=== PATIENT | male | born 1940 | race Caucasian/White ===

== ENCOUNTER 2018-09-09 13:34 | Observation (INO) | payer OTHER ==
[~2018-09-09 13:34] MED LIST: ASCO500C18 PO; ASPI-555 PO; CALC600T12 PO; HYDR25TA PO; LOSA100T58 PO; MAGN250T10 PO; MULT-1289 PO; NITR0.4T50 SL; OM3/1CAP3 PO; VITA1CAP20 PO
[2018-09-09] MEDS ORDERED: ONDANSETRON HCL 4 MG/2 ML VIAL ONE (13:49)
[2018-09-09] MEDS ORDERED: ASPIRIN 325 MG TABLET ONE (13:49)
[2018-09-09] MEDS ORDERED: MORPHINE SULFATE 2 MG/ML 1ML SYG ONE (13:50)
[2018-09-09] MEDS ORDERED: NITROGLYCERIN 1GM/1 INCH PACKET TD ONE ×2 (13:50→22:04)
[2018-09-09 13:54] LABS: BASOPHILS % (AUTO) 0.8 % (0.0-5.0); EOSINOPHILS % (AUTO) 3.5 % (0.0-8.0); HEMATOCRIT 41.5 % (42-54); LYMPHOCYTES % (AUTO) 41.5 % (21.0-51.0); MEAN CORPUSCULAR HEMOGLOBIN 31.8 pg (27.0-33.0); MEAN CORPUSCULAR HGB CONC 34.7 g/dL (32.0-36.0); MEAN CORPUSCULAR VOLUME 91.7 fL (79-99); MONOCYTES % (AUTO) 8.8 % (3.0-13.0); NEUTROPHILS % (AUTO) 45.4 % (40.0-77.0); PLATELET COUNT (AUTO) 231 K/uL (130-400); RED BLOOD CELL COUNT(AUTO) 4.53 MIL/uL (4.50-6.20); RED CELL DISTRIBUTION WIDTH 12.5 % (11.0-15.5); WHITE BLOOD COUNT (AUTO) 7.8 K/uL (4.8-10.8)
[2018-09-09 13:57] LABS: CREATININE 1.2 mg/dL (0.5-1.5); POTASSIUM 3.9 mmol/L (3.5-5.1)
[2018-09-09 14:03] LABS: ALBUMIN 3.7 g/dL (3.5-5.0); BILIRUBIN,TOTAL 0.5 mg/dL (0.2-1.0); TOTAL PROTEIN, SERUM 8.1 g/dL (6.0-8.3)
[2018-09-09 14:10] LABS: INR 0.99 (0.85-1.15); PARTIAL THROMBOPLASTIN TIME 28.2 SEC (26.3-35.5); PROTHROMBIN TIME 10.4 SEC (9.6-11.6)
[2018-09-09] MEDS ORDERED: ENOXAPARIN SODIUM 100 MG/1 ML SQ ONE (14:38)
[2018-09-09] MEDS ORDERED: MORPHINE SULFATE 2 MG/ML 1ML SYG IV PRN (14:45)
[2018-09-09] MEDS ORDERED: HYDRALAZINE HCL 20 MG/ML VIAL IV PRN (14:45)
[2018-09-09] MEDS ORDERED: ONDANSETRON HCL 4 MG/2 ML VIAL IV PRN (14:45)
[2018-09-09] MEDS ORDERED: ACETAMINOPHEN 325 MG TAB PO PRN ×2 (14:45)
[2018-09-09 15:46] LABS: TROPONIN I 0.29 ng/mL (0.00-0.06)
[2018-09-09] MEDS: METOPROLOL TARTRATE 25 MG TAB PO SCH (21:00)
[2018-09-09] MEDS ORDERED: METOPROLOL TARTRATE 25 MG TAB ONE (22:04)
[2018-09-09] MEDS ORDERED: FAMOTIDINE/PF 20 MG/2 ML VIAL IV ONE (22:05)
--- NOTE | 2018-09-09 22:25 | NUR ---
Patient transferred from ED. Denies chest pain or sob at this time. Patient will be NPO at midnight for Heart Cath in am. Consent signed and in chart. Will continue to monitor for chest pain.
[2018-09-09 22:30] VITALS: BP 128/69
[2018-09-09] MEDS: NITROGLYCERIN 1GM/1 INCH PACKET TD SCH (22:45)
[2018-09-09 23:58] LABS: TROPONIN I 0.27 ng/mL (0.00-0.06)
[2018-09-10] VITALS (11 sets, daily range): BP systolic 128–148; BP diastolic 67–81
[2018-09-10 07:21] LABS: TROPONIN I 0.29 ng/mL (0.00-0.06)
[2018-09-10] MEDS ORDERED: BIVALIRUDIN 250 MG/VIAL IV ONE (07:41)
[2018-09-10] MEDS ORDERED: NITROGLYCERIN 5 MG/ML 10 ML VIAL IV ONE (07:41)
[2018-09-10] MEDS ORDERED: LIDOCAINE HCL 2% 20ML ONE (07:41)
[2018-09-10] MEDS ORDERED: IOHEXOL 350 MG/ML 100ML INFUS..BTL IV ONE (07:41)
[2018-09-10] MEDS ORDERED: IOHEXOL-350 50ML VIAL IV ONE (07:41)
[2018-09-10] MEDS ORDERED: MIDAZOLAM HCL 1 MG/ML 2ML VIAL ONE (08:05)
[2018-09-10] MEDS ORDERED: [UNRECOGNIZED DRUG - OTHER] PO SCH (09:00)
[2018-09-10] MEDS ORDERED: D3 PO SCH (09:00)
[2018-09-10] MEDS ORDERED: DHA PO SCH (09:00)
[2018-09-10] MEDS ORDERED: FAMOTIDINE/PF 20 MG/2 ML VIAL IV SCH (09:00)
[2018-09-10] MEDS ORDERED: NITROGLYCERIN 0.4 MG SL TAB SL SCH (09:00)
[2018-09-10] MEDS ORDERED: ASCORBIC ACID 500 MG TAB PO SCH (09:00)
[2018-09-10] MEDS ORDERED: COD LIVER OIL PO SCH (09:00)
[2018-09-10] MEDS ORDERED: ENOXAPARIN SODIUM 40 MG/0.4 ML SYRINGE SQ SCH (09:00)
[2018-09-10] MEDS ORDERED: VITAMIN B COMPLEX 1 CAPSULE PO SCH (09:00)
[2018-09-10] MEDS ORDERED: CALCIUM 600 + VITAMIN D 400 TABLET PO SCH (09:00)
[2018-09-10] MEDS ORDERED: EPA PO SCH (09:00)
[2018-09-10] MEDS ORDERED: ASPIRIN 325 MG TABLET PO SCH (09:00)
[2018-09-10] MEDS ORDERED: LOSARTAN 100 MG TABLET PO SCH (09:00)
[2018-09-10] MEDS ORDERED: ATOR10TA69 PO (09:03)
[2018-09-10] MEDS ORDERED: RANO500T2 PO (09:03)
[2018-09-10] MEDS ORDERED: SODIUM CHLORIDE 0.9% 1000ML 1,000 ML IV SCH (09:03)
--- NOTE | 2018-09-10 09:25 | NUR ---
RETURNED TO ROOM 230 VIA BED ACCOMPANIED BY Arnulfo MARSHALL RN. PT. AAOX3, RESP.'S EVEN AND UNLABORED. DENIES ANY C/O SOB, DENIES ANY CURRENT PAIN. INSTRUCTED PT. ON STRICT BR PER MD ORDERS, VERBALIZED UNDERSTANDING. RIGHT GROIN WITH LIGHT DRSG IN PLACE, DRSG D/I; AREA SOFT, NO ECCHYMOSIS OR HEMATOMA NOTED. FEET WARM, PP'S (+) BILATERALLY, DENIES ANY C/O NUMBNESS OR TINGLING. BED PLACED IN REVERSE [place] POSITION FOR COMFORT. SIDE RAILS UP. CALL LIGHT WITHIN REACH, VERBALIZED ABILITY TO USE.
--- NOTE | 2018-09-10 09:40 | NUR ---
CONT.'S ON BR. RIGHT GROIN UNCHANGED. DENIES ANY C/O. CALL LIGHT WITHIN REACH.
--- NOTE | 2018-09-10 10:00 | NUR ---
LATE ENTRY DR. DR. Erik DAVID IN ROOM SPEAKING WITH PT. AND INFORMING OF [facility] FINDINGS AND PLAN FOR DISCHARGE AFTER BR AND HYDRATION COMPLETED, PT. VERBALIZED UNDERSTANDING. QUESTIONS ANSWERED BY DR. Erik DAVID.
--- NOTE | 2018-09-10 10:10 | NUR ---
RESTING IN BED IN REVERSE [place] POSITION. EATING SANDWICH TRAY PROVIDED. DENIES ANY C/O. CALL LIGHT WITHIN REACH.
[2018-09-10] MEDS: METOPROLOL TARTRATE 25 MG TAB PO SCH (10:23)
--- NOTE | 2018-09-10 11:30 | NUR ---
RESTING IN BED. RIGHT GROIN UNCHANGED. CALL LIGHT WITHIN REACH.
--- NOTE | 2018-09-10 13:55 | NUR ---
BR COMPLETED. RIGHT GROIN SOFT, NO ECCHYMOSIS OR HEMATOMA NOTED; DRSG D/I. PP.'S STRONG BILATERALLY. ALLOWED OOB TO CHAIR. CALL LIGHT WITHIN REACH.
[2018-09-10] MEDS: NITROGLYCERIN 1GM/1 INCH PACKET TD SCH (14:45)
--- NOTE | 2018-09-10 16:30 | NUR ---
HL REMOVED, CATHETER INTACT. DISCHARGE INSTRUCTIONS GIVEN AND DISCHARGE PAPERWORK PROVIDED, VERBALIZED UNDERSTANDING. INFORMED PT. RE:RESTRICTIONS AND NOT RECOMMENDED TO DRIVE POST LHC, STATES," I'VE ALWAYS DONE IT AFTER THE HEART CATHS AND I'M FINE."
--- NOTE | 2018-09-10 16:45 | NUR ---
DISCHARGED HOME VIA W/C WITH BELONGINGS ACCOMPANIED BY FLORINA TOLBERT.
[2018-09-10] MEDS ORDERED: RANOLAZINE 500 MG TAB.SR.12H PO SCH (21:00)
[2018-09-10] MEDS ORDERED: ATORVASTATIN CALCIUM 20 MG TABLET PO SCH (21:00)
[2018-09-10] MEDS ORDERED: HYDROCHLOROTHIAZIDE 25 MG TABLET PO SCH (21:00)
[2018-09-11] MEDS ORDERED: ASPIRIN 81 MG EC TAB PO SCH (09:00)
[2018-09-11] MEDS ORDERED: MULTIVITAMIN WITH MINERALS TABLET PO SCH (09:00)
[2018-09-17] MEDS ORDERED: MAGNESIUM OXIDE 250 MG PO SCH (09:00)
== END 2018-09-10 16:50 | disposition home or self-care (01) ==
LOC: EDH 13:34 → EDHIP 14:43 → INTOOBSV 14:43 → 2AH 22:32
PROVIDERS: ADMIT Internal Medicine; ATTEND Internal Medicine
DX: I25.118 Atherosclerotic heart disease of native coronary artery with other forms of angina pectoris (principal); I10 Essential (primary) hypertension; E78.5 Hyperlipidemia, unspecified; T82.857A Stenosis of other cardiac prosthetic devices, implants and grafts, initial encounter; Y83.2 Surgical operation with anastomosis, bypass or graft as the cause of abnormal reaction of the patient, or of later complication, without mention of misadventure at the time of the procedure; Z95.5 Presence of coronary angioplasty implant and graft; Z88.8 Allergy status to other drugs, medicaments and biological substances; Z95.1 Presence of aortocoronary bypass graft; Z90.49 Acquired absence of other specified parts of digestive tract; Z87.891 Personal history of nicotine dependence; Z79.899 Other long term (current) drug therapy
CPT/HCPCS: 36415 ×3; 71045; 80053; 80061; 81003; 82550 ×4; 83036; 83874 ×3; 84484 ×4; 85025 ×2; 85610 ×2; 85730 ×2; 93005 ×5; 93459; 96374; 99284; C1760; C1894; G0378 ×26; J1644; J1650; J2250; J2405; J3490 ×4; J7030; Q9965 ×2; Q9967 ×2; 80048; 99156; 99157; J0583

== ENCOUNTER 2019-03-23 10:13 | Emergency (ER) | payer OTHER ==
[~2019-03-23 10:13] MED LIST changes: +ATOR10TA69 PO; +RANO500T2 PO
[2019-03-23 11:17] LABS: EOSINOPHILS % (AUTO) 2.6 % (0.0-8.0); HEMATOCRIT 42.2 % (42-54); LYMPHOCYTES % (AUTO) 33.9 % (21.0-51.0); MEAN CORPUSCULAR HEMOGLOBIN 31.9 pg (27.0-33.0); MEAN CORPUSCULAR HGB CONC 34.4 g/dL (32.0-36.0); MEAN CORPUSCULAR VOLUME 92.9 fL (79-99); MONOCYTES % (AUTO) 8.4 % (3.0-13.0); NEUTROPHILS % (AUTO) 54.1 % (40.0-77.0); PLATELET COUNT (AUTO) 232 K/uL (130-400); RED BLOOD CELL COUNT(AUTO) 4.54 MIL/uL (4.50-6.20); RED CELL DISTRIBUTION WIDTH 12.8 % (11.0-15.5)
[2019-03-23] MEDS ORDERED: DiphenhydrAMINE HCL 50 MG/ML VIAL ONE (11:29)
[2019-03-23 11:31] LABS: CREATININE 1.2 mg/dL (0.5-1.5); POTASSIUM 4.2 mmol/L (3.5-5.1)
[2019-03-23 11:44] LABS: ALBUMIN 3.7 g/dL (3.5-5.0); BILIRUBIN,TOTAL 0.6 mg/dL (0.2-1.0); THYROID STIMULATING HORMONE 3.58 uIU/mL (0.36-3.74); TOTAL PROTEIN, SERUM 8.1 g/dL (6.0-8.3)
[2019-03-23] MEDS ORDERED: FAMOTIDINE/PF 20 MG/2 ML VIAL IV ONE (12:42)
== END 2019-03-23 13:06 | disposition home or self-care (01) ==
LOC: EDH 10:13
DX: L50.9 Urticaria, unspecified (principal); I25.10 Atherosclerotic heart disease of native coronary artery without angina pectoris; I10 Essential (primary) hypertension; Z87.891 Personal history of nicotine dependence; Z88.8 Allergy status to other drugs, medicaments and biological substances; Z79.899 Other long term (current) drug therapy
CPT/HCPCS: 36415; 80053; 84443; 85025; 86038; 86431; 96374; 96375; 99284; J1200; J3490

== ENCOUNTER 2022-10-29 02:21 | Emergency (ER) | payer OTHER ==
[~2022-10-29] VITALS: Ht 180.3 cm; Wt 90.7 kg
[~2022-10-29 02:21] MED LIST changes: -ASCO500C18 PO; +ASPI-1197 PO; -ASPI-555 PO; -ATOR10TA69 PO; +ATOR40TA71 PO; -CALC600T12 PO; +GUAI100S13 PO; -HYDR25TA PO; -MAGN250T10 PO; +METO-391 PO; -MULT-1289 PO; -NITR0.4T50 SL; -OM3/1CAP3 PO; -RANO500T2 PO; +SENN-180 PO; -VITA1CAP20 PO
[2022-10-29] MEDS ORDERED: TETRACAINE HCL 0.5% 4 ML OPHTH SOLN OP SCH (03:30)
[2022-10-29 04:05] VITALS: BP 132/63
[2022-10-29] MEDS ORDERED: AMOX/CLAV 875/125MG TAB PO STA (04:10)
[2022-10-29] MEDS ORDERED: CIPOTIC OT (04:14)
[2022-10-29] MEDS ORDERED: AMOX1TAB16 PO (04:14)
== END 2022-10-29 04:43 | disposition home or self-care (01) ==
LOC: EDH 02:21
DX: H60.91 Unspecified otitis externa, right ear (principal); H66.90 Otitis media, unspecified, unspecified ear; I10 Essential (primary) hypertension; Z79.899 Other long term (current) drug therapy; Z79.82 Long term (current) use of aspirin; Z90.49 Acquired absence of other specified parts of digestive tract; Z98.890 Other specified postprocedural states; Z88.8 Allergy status to other drugs, medicaments and biological substances

== ENCOUNTER 2023-03-02 06:00 | Inpatient (IN) | payer OTHER ==
[~2023-03-02] VITALS: Ht 180.3 cm; Wt 88.9 kg
[~2023-03-02 06:00] MED LIST changes: +AMOX1TAB16 PO; +CIPOTIC OT; -LOSA100T58 PO; +LOSA100T59 PO
[2023-03-02 06:26] LABS: BASOPHILS # (AUTO) 0.05 K/uL (0.00-0.20); BASOPHILS % (AUTO) 0.9 % (0.0-5.0); EOSINOPHILS # (AUTO) 0.15 K/uL (0.00-0.70); EOSINOPHILS % (AUTO) 2.6 % (0.0-8.0); HEMATOCRIT 40.3 % (42-54); IMMATURE GRANULOCYTE ABSOLUTE 0.01 K/uL (0-1); LYMPHOCYTES # (AUTO) 2.7 K/uL (1.0-4.8); LYMPHOCYTES % (AUTO) 45.5 % (21.0-51.0); MEAN CORPUSCULAR HEMOGLOBIN 31.4 pg (27.0-33.0); MEAN CORPUSCULAR HGB CONC 34.5 g/dL (32.0-36.0); MONOCYTES # (AUTO) 0.6 K/uL (0.1-1.0); MONOCYTES % (AUTO) 10.4 % (3.0-13.0); NEUTROPHILS # (AUTO) 2.4 K/uL (1.8-7.7); NEUTROPHILS % (AUTO) 40.4 % (40.0-77.0); PLATELET COUNT (AUTO) 238 K/uL (130-400); RED BLOOD CELL COUNT(AUTO) 4.43 MIL/uL (4.50-6.20); RED CELL DISTRIBUTION WIDTH 12.2 % (11.0-15.5); WHITE BLOOD COUNT (AUTO) 5.9 K/uL (4.8-10.8)
[2023-03-02 06:37] LABS: INR 0.97 (0.85-1.15); PROTHROMBIN TIME 11.3 SEC (9.6-11.6)
[2023-03-02 06:38] LABS: PARTIAL THROMBOPLASTIN TIME 27.6 SEC (26.3-35.5)
[2023-03-02 06:44] LABS: ALBUMIN 3.6 g/dL (3.5-5.0); BILIRUBIN,TOTAL 0.6 mg/dL (0.2-1.0); CREATININE 1.1 mg/dL (0.5-1.5); POTASSIUM 3.7 mmol/L (3.5-5.1); TOTAL PROTEIN, SERUM 7.8 g/dL (6.0-8.3)
[2023-03-02] MEDS ORDERED: ATENOLOL 50 MG TABLET ONE (11:12)
[2023-03-02 11:25] LABS: APPEARANCE,URINE CLEAR (CLEAR); BILIRUBIN,URINE NEGATIVE (NEGATIVE); GLUCOSE, URINE (UA) NEGATIVE (NEGATIVE); KETONES,URINE NEGATIVE (NEGATIVE); LEUKOCYTE ESTERASE ,URINE NEGATIVE Leu/uL (NEGATIVE); NITRATE,URINE NEGATIVE (NEGATIVE); OCCULT BLOOD,URINE NEGATIVE (NEGATIVE); PH,URINE 7.5 (5.0-8.0); PROTEIN,URINE NEGATIVE (NEGATIVE); UROBILINOGEN,URINE 0.2 mg/dL (0.2-1.0)
[2023-03-02 11:27] LABS: ADD UA MICROSCOPIC NO; COLOR,URINE LIGHT-YELLOW (YELLOW)
[2023-03-02 11:31] LABS: AMPHET/METH SCREEN,URINE NEGATIVE (NEGATIVE); BARBITURATE SCREEN, URINE NEGATIVE (NEGATIVE); BENZODIAZEPINES SCREEN,URINE NEGATIVE (NEGATIVE); CANNABINOID SCREEN,URINE NEGATIVE (NEGATIVE); COCAINE SCREEN,URINE NEGATIVE (NEGATIVE); OPIATE SCREEN,URINE NEGATIVE (NEGATIVE); PHENCYCLIDINE SCREEN,URINE NEGATIVE (NEGATIVE)
[2023-03-02] MEDS ORDERED: ASPIRIN 81MG CHEW TAB ONE (11:48)
[2023-03-02] MEDS: ASPIRIN 81 MG EC TAB PO SCH (11:50)
[2023-03-02] MEDS: LOSARTAN 50 MG TABLET PO SCH ×2 (11:50→15:28)
[2023-03-02] MEDS: ATENOLOL 25 MG TABLET PO SCH ×2 (11:50→15:29)
[2023-03-02 11:53] LABS: HEMOGLOBIN A1C 5.7 % (4.0-6.0)
[2023-03-02] MEDS ORDERED: HYDR25TA PO (11:54)
[2023-03-02] MEDS ORDERED: ATEN50TA PO (11:54)
[2023-03-02 13:42] VITALS: BP 184/86; PULSE 69; RESP 16
[2023-03-02 14:03] VITALS: O2SAT 100
[2023-03-02] MEDS: ATORVASTATIN 40 MG TABLET PO SCH (15:36)
[2023-03-02 15:58] VITALS: BP 185/72; PULSE 55; RESP 20
[2023-03-02 19:40] VITALS: O2SAT 98
[2023-03-02 19:48] VITALS: BP 171/92; PULSE 55; RESP 18
[2023-03-02] MEDS: CARVEDILOL 12.5 MG TABLET PO SCH (20:07)
[2023-03-02] MEDS: DOCUSATE PO SCH (20:17)
[2023-03-02] MEDS: SENNA PO SCH (20:17)
[2023-03-02 23:21] VITALS: BP 150/90; PULSE 52; RESP 18
[2023-03-03] VITALS (11 sets, daily range): BP systolic 107–183; BP diastolic 72–92; PULSE 57–82; RESP 16–18; O2SAT 98
[2023-03-03 04:01] LABS: BASOPHILS # (AUTO) 0.06 K/uL (0.00-0.20); EOSINOPHILS # (AUTO) 0.16 K/uL (0.00-0.70); EOSINOPHILS % (AUTO) 2.7 % (0.0-8.0); HEMATOCRIT 39.9 % (42-54); IMMATURE GRANULOCYTE ABSOLUTE 0.01 K/uL (0-1); LYMPHOCYTES # (AUTO) 2.2 K/uL (1.0-4.8); LYMPHOCYTES % (AUTO) 37.5 % (21.0-51.0); MEAN CORPUSCULAR HEMOGLOBIN 30.9 pg (27.0-33.0); MEAN CORPUSCULAR HGB CONC 33.8 g/dL (32.0-36.0); MEAN CORPUSCULAR VOLUME 91.3 fL (79-99); MONOCYTES # (AUTO) 0.6 K/uL (0.1-1.0); MONOCYTES % (AUTO) 10.4 % (3.0-13.0); NEUTROPHILS # (AUTO) 2.8 K/uL (1.8-7.7); NEUTROPHILS % (AUTO) 48.2 % (40.0-77.0); PLATELET COUNT (AUTO) 222 K/uL (130-400); RED BLOOD CELL COUNT(AUTO) 4.37 MIL/uL (4.50-6.20); RED CELL DISTRIBUTION WIDTH 12.2 % (11.0-15.5); WHITE BLOOD COUNT (AUTO) 5.9 K/uL (4.8-10.8)
[2023-03-03 04:25] LABS: ALBUMIN 3.1 g/dL (3.5-5.0); BILIRUBIN,TOTAL 0.5 mg/dL (0.2-1.0); CREATININE 1.2 mg/dL (0.5-1.5); POTASSIUM 3.9 mmol/L (3.5-5.1)
[2023-03-03] MEDS: CARVEDILOL 12.5 MG TABLET PO SCH ×2 (08:28→20:18)
[2023-03-03] MEDS ORDERED: CARV12.580 PO (09:37)
[2023-03-03] MEDS ORDERED: LOSA-418 PO (09:37)
[2023-03-03] MEDS ORDERED: LOSA50TA64 PO (09:50)
[2023-03-03] MEDS ORDERED: CLONIDINE HCL 0.1 MG TABLET PO SCH (10:30)
[2023-03-03] MEDS ORDERED: LOSARTAN 50 MG TABLET PO SCH (11:00)
[2023-03-03] MEDS: LOSARTAN 50 MG TABLET PO SCH (20:18)
[2023-03-03] MEDS: DOCUSATE PO SCH (20:22)
[2023-03-03] MEDS: SENNA PO SCH (20:22)
[2023-03-03] MEDS ORDERED: CLONIDINE HCL 0.1 MG TABLET PO PRN (20:30)
[2023-03-04] VITALS (11 sets, daily range): BP systolic 137–199; BP diastolic 63–90; PULSE 58–74; RESP 18–20; O2SAT 97–99
[2023-03-04] MEDS: ATORVASTATIN 40 MG TABLET PO SCH (09:00)
[2023-03-04] MEDS: LOSARTAN 50 MG TABLET PO SCH ×2 (09:00→20:08)
[2023-03-04 10:27] LABS: ALBUMIN 3.1 g/dL (3.5-5.0); BILIRUBIN,TOTAL 0.5 mg/dL (0.2-1.0); CREATININE 1.2 mg/dL (0.5-1.5); MAGNESIUM 2.2 mg/dL (1.80-2.40); POTASSIUM 3.7 mmol/L (3.5-5.1); TOTAL PROTEIN, SERUM 6.7 g/dL (6.0-8.3)
[2023-03-04] MEDS: CARVEDILOL 12.5 MG TABLET PO SCH ×2 (11:03→20:09)
[2023-03-04] MEDS: ASPIRIN 81 MG EC TAB PO SCH (11:04)
[2023-03-04 16:43] LABS: HEMATOCRIT 36.7 % (42-54); MEAN CORPUSCULAR HEMOGLOBIN 31.9 pg (27.0-33.0); MEAN CORPUSCULAR HGB CONC 35.1 g/dL (32.0-36.0); MEAN CORPUSCULAR VOLUME 90.8 fL (79-99); RED BLOOD CELL COUNT(AUTO) 4.04 MIL/uL (4.50-6.20); RED CELL DISTRIBUTION WIDTH 12.2 % (11.0-15.5); WHITE BLOOD COUNT (AUTO) 6.4 K/uL (4.8-10.8)
[2023-03-04] MEDS: SENNA PO SCH (20:15)
[2023-03-04] MEDS: DOCUSATE PO SCH (20:15)
[2023-03-05] VITALS (8 sets, daily range): BP systolic 124–158; BP diastolic 66–89; PULSE 61–71; RESP 18–22; O2SAT 97
[2023-03-05 04:21] LABS: BILIRUBIN,TOTAL 0.5 mg/dL (0.2-1.0); CREATININE 1.3 mg/dL (0.5-1.5); POTASSIUM 4.1 mmol/L (3.5-5.1); TOTAL PROTEIN, SERUM 6.7 g/dL (6.0-8.3)
[2023-03-05] MEDS: LOSARTAN 50 MG TABLET PO SCH (08:30)
[2023-03-05] MEDS: CARVEDILOL 12.5 MG TABLET PO SCH (08:30)
[2023-03-05] MEDS: ATORVASTATIN 40 MG TABLET PO SCH (08:30)
[2023-03-05] MEDS: ASPIRIN 81 MG EC TAB PO SCH (08:31)
[2023-03-05] MEDS ORDERED: AMLO-258 PO (09:12)
[2023-03-05] MEDS ORDERED: SPIR25TA6 PO (09:12)
[2023-03-05] MEDS ORDERED: VALS80TA30 PO (09:12)
[2023-03-05] MEDS ORDERED: AMLODIPINE 5 MG TAB PO ONE (09:30)
== END 2023-03-05 12:40 | disposition home or self-care (01) | DRG 305 ==
LOC: EDH 06:00 → EDHIP 11:03 → 2AH 13:15
PROVIDERS: ADMIT Internal Medicine; ATTEND Internal Medicine
DX: I16.0 Hypertensive urgency (principal); E87.1 Hypo-osmolality and hyponatremia; I24.8 Other forms of acute ischemic heart disease; T50.2X5A Adverse effect of carbonic-anhydrase inhibitors, benzothiadiazides and other diuretics, initial encounter; I25.10 Atherosclerotic heart disease of native coronary artery without angina pectoris; E78.00 Pure hypercholesterolemia, unspecified; E03.9 Hypothyroidism, unspecified; I10 Essential (primary) hypertension; Z79.899 Other long term (current) drug therapy; Z87.891 Personal history of nicotine dependence; Z95.1 Presence of aortocoronary bypass graft; Z95.5 Presence of coronary angioplasty implant and graft
CPT/HCPCS: 36415; 70450; 71045; 80053; 80305; 81003; 82550; 83036; 83735; 83874; 84436; 84443; 84484; 85025; 85027; 85610; 85730; 93005; 93306; 93356; G0378

== ENCOUNTER 2023-03-25 08:50 | Emergency (ER) | payer OTHER ==
[~2023-03-25 08:50] MED LIST changes: +AMLO-258 PO; -LOSA100T59 PO; -METO-391 PO; +SPIR25TA6 PO; +VALS80TA30 PO
[2023-03-25 09:16] LABS: HEMATOCRIT 39.6 % (42-54); MEAN CORPUSCULAR HEMOGLOBIN 31.6 pg (27.0-33.0); MEAN CORPUSCULAR HGB CONC 34.3 g/dL (32.0-36.0); MEAN CORPUSCULAR VOLUME 91.9 fL (79-99); RED BLOOD CELL COUNT(AUTO) 4.31 MIL/uL (4.50-6.20); RED CELL DISTRIBUTION WIDTH 11.8 % (11.0-15.5); WHITE BLOOD COUNT (AUTO) 6.4 K/uL (4.8-10.8)
[2023-03-25 09:26] LABS: CREATININE 1.1 mg/dL (0.5-1.5); POTASSIUM 4.2 mmol/L (3.5-5.1)
[2023-03-25 15:18] VITALS: BP 160/77; PULSE 69; RESP 16; O2SAT 98
[2023-03-25] MEDS ORDERED: MELO-106 PO (15:39)
[2023-03-25] MEDS ORDERED: GABA100C PO (15:39)
== END 2023-03-25 15:46 | disposition home or self-care (01) ==
LOC: EDH 08:50
DX: M47.22 Other spondylosis with radiculopathy, cervical region (principal); I10 Essential (primary) hypertension; E78.00 Pure hypercholesterolemia, unspecified; Z88.8 Allergy status to other drugs, medicaments and biological substances; Z79.899 Other long term (current) drug therapy; Z90.49 Acquired absence of other specified parts of digestive tract
CPT/HCPCS: 36415; 70450; 72125; 80048; 85027

== ENCOUNTER 2023-04-29 08:02 | Observation (INO) | payer OTHER ==
[~2023-04-29] VITALS: Ht 182.9 cm; Wt 90.4 kg
[~2023-04-29 08:02] MED LIST changes: +GABA100C PO; +MELO-106 PO
[2023-04-29 08:43] LABS: HEMATOCRIT 38.5 % (42-54); MEAN CORPUSCULAR HEMOGLOBIN 32.1 pg (27.0-33.0); MEAN CORPUSCULAR HGB CONC 34.8 g/dL (32.0-36.0); MEAN CORPUSCULAR VOLUME 92.1 fL (79-99); PLATELET COUNT (AUTO) 228 K/uL (130-400); RED BLOOD CELL COUNT(AUTO) 4.18 MIL/uL (4.50-6.20); RED CELL DISTRIBUTION WIDTH 12.5 % (11.0-15.5); WHITE BLOOD COUNT (AUTO) 5.5 K/uL (4.8-10.8)
[2023-04-29 08:53] LABS: CREATININE 1.2 mg/dL (0.5-1.5); POTASSIUM 3.9 mmol/L (3.5-5.1)
[2023-04-29 09:08] LABS: ALBUMIN 3.4 g/dL (3.5-5.0); BILIRUBIN,TOTAL 0.4 mg/dL (0.2-1.0); TOTAL PROTEIN, SERUM 7.4 g/dL (6.0-8.3)
[2023-04-29 09:27] LABS: EOSINOPHILS % (MANUAL) 1 % (1-6); LYMPHOCYTES % (MANUAL) 43 % (22-44); MONOCYTES % (MANUAL) 6 % (2-9); SEGMENTED NEUTROPHILS % 50 % (40-70); TOTAL CELLS COUNTED 100
[2023-04-29 09:28] LABS: MAN.DIFF COMMENT-IMPRESSION MANUAL DIFFERENTIAL; PLATELET MORPHOLOGY COMMENT ADEQUATE; WBC MORPHOLOGY SLIDE REVIEWED
[2023-04-29] MEDS ORDERED: ATEN50TA PO (12:18)
[2023-04-29] MEDS ORDERED: ATOR10TA69 PO (12:18)
[2023-04-29] MEDS: 0.9%NACL 1000ML 1,000 ML IV SCH (13:13)
[2023-04-29] MEDS: LOSARTAN 25 MG TABLET PO SCH (13:15)
[2023-04-29] MEDS ORDERED: ACETAMINOPHEN 500 MG TABLET PO PRN (13:30)
[2023-04-29] MEDS ORDERED: ONDANSETRON 4MG INJ IVP PRN (13:30)
[2023-04-29] MEDS: ATENOLOL 50 MG TABLET PO SCH (17:53)
[2023-04-29 22:00] VITALS: BP 166/96; PULSE 57; RESP 18; O2SAT 98
[2023-04-30] VITALS (13 sets, daily range): BP systolic 114–167; BP diastolic 53–98; PULSE 51–71; RESP 18–20; O2SAT 97
[2023-04-30] MEDS ORDERED: HYDRALAZINE 20MG/ML VIAL IV ONE
[2023-04-30] MEDS: ATENOLOL 50 MG TABLET PO SCH (07:52)
[2023-04-30] MEDS: ASPIRIN 81 MG EC TAB PO SCH (07:52)
[2023-04-30] MEDS: LOSARTAN 25 MG TABLET PO SCH (12:21)
[2023-04-30] MEDS ORDERED: SPIRONOLACTONE 25 MG TAB PO ONE (15:30)
[2023-05-01 03:44] LABS: BASOPHILS # (AUTO) 0.05 K/uL (0.00-0.20); BASOPHILS % (AUTO) 0.9 % (0.0-5.0); EOSINOPHILS # (AUTO) 0.16 K/uL (0.00-0.70); EOSINOPHILS % (AUTO) 2.7 % (0.0-8.0); HEMATOCRIT 37.4 % (42-54); IMMATURE GRANULOCYTE ABSOLUTE 0.02 K/uL (0-1); LYMPHOCYTES # (AUTO) 2.2 K/uL (1.0-4.8); LYMPHOCYTES % (AUTO) 37.3 % (21.0-51.0); MEAN CORPUSCULAR HEMOGLOBIN 31.7 pg (27.0-33.0); MEAN CORPUSCULAR HGB CONC 34.2 g/dL (32.0-36.0); MEAN CORPUSCULAR VOLUME 92.6 fL (79-99); MONOCYTES # (AUTO) 0.6 K/uL (0.1-1.0); MONOCYTES % (AUTO) 9.9 % (3.0-13.0); NEUTROPHILS # (AUTO) 2.9 K/uL (1.8-7.7); NEUTROPHILS % (AUTO) 48.9 % (40.0-77.0); PLATELET COUNT (AUTO) 211 K/uL (130-400); RED BLOOD CELL COUNT(AUTO) 4.04 MIL/uL (4.50-6.20); RED CELL DISTRIBUTION WIDTH 12.4 % (11.0-15.5); WHITE BLOOD COUNT (AUTO) 5.9 K/uL (4.8-10.8)
[2023-05-01 03:57] LABS: CREATININE 1.3 mg/dL (0.5-1.5); PHOSPHORUS 3.7 mg/dL (2.5-4.9); POTASSIUM 4.3 mmol/L (3.5-5.1)
[2023-05-01 04:30] VITALS: BP 148/76; PULSE 80; RESP 18
[2023-05-01] MEDS: 0.9%NACL 1000ML 1,000 ML IV SCH (05:00)
[2023-05-01 07:00] VITALS: BP 158/77; PULSE 66; RESP 18
[2023-05-01] MEDS ORDERED: SPIR25TA6 PO (07:22)
[2023-05-01] MEDS ORDERED: LOSA-417 PO (07:22)
[2023-05-01] MEDS: ASPIRIN 81 MG EC TAB PO SCH (07:59)
[2023-05-01 08:03] VITALS: BP 148/76; PULSE 53
[2023-05-01] MEDS: ATENOLOL 50 MG TABLET PO SCH (08:03)
[2023-05-01 08:05] VITALS: O2SAT 97
[2023-05-01] MEDS ORDERED: SPIRONOLACTONE 25 MG TAB PO SCH (09:00)
== END 2023-05-01 11:05 | disposition home or self-care (01) ==
LOC: EDH 08:02 → EDHIP 12:35 → 2AH 22:22
PROVIDERS: ADMIT Internal Medicine; ATTEND Internal Medicine
DX: I16.0 Hypertensive urgency (principal); I10 Essential (primary) hypertension; I25.10 Atherosclerotic heart disease of native coronary artery without angina pectoris; I45.10 Unspecified right bundle-branch block; I44.0 Atrioventricular block, first degree; I48.0 Paroxysmal atrial fibrillation; I49.1 Atrial premature depolarization; I73.9 Peripheral vascular disease, unspecified; I87.2 Venous insufficiency (chronic) (peripheral); M47.9 Spondylosis, unspecified; E78.00 Pure hypercholesterolemia, unspecified; R79.89 Other specified abnormal findings of blood chemistry; Z79.899 Other long term (current) drug therapy; Z87.891 Personal history of nicotine dependence; Z91.148 Patient's other noncompliance with medication regimen for other reason; Z95.1 Presence of aortocoronary bypass graft; Z95.5 Presence of coronary angioplasty implant and graft; Z79.82 Long term (current) use of aspirin; Z98.890 Other specified postprocedural states; Z90.49 Acquired absence of other specified parts of digestive tract
CPT/HCPCS: 96361; 99284; 84484; 80053; 85025 ×2; 36415 ×2; 93005; 96374; 83735; 84100; 80048; G0378 ×46; J7030; J0360

== ENCOUNTER → 2023-09-27 | Outpatient (CLI) | payer OTHER ==
[~2023-09-27] MED LIST changes: -AMLO-258 PO; +AMLO2.5T4 PO; -AMOX1TAB16 PO; +ATEN25TA PO; +ATEN50TA PO; +ATOR10TA69 PO; -ATOR40TA71 PO; -CIPOTIC OT; -GABA100C PO; -GUAI100S13 PO; +LOSA-417 PO; -MELO-106 PO; -SENN-180 PO; -VALS80TA30 PO
[2023-09-27] MEDS: REGADENOSON 0.4 MG/5 ML PF SYG IVP SCH (11:14)
== END | disposition home or self-care (01) ==
LOC: RAH 08:48
PROVIDERS: ATTEND Internal Medicine Cardiovascular Disease
DX: I25.10 Atherosclerotic heart disease of native coronary artery without angina pectoris (principal); R07.9 Chest pain, unspecified; R06.00 Dyspnea, unspecified
CPT/HCPCS: 78452; 96374; 93017; J2785; A9500 ×2

== ENCOUNTER 2024-09-13 18:43 | Inpatient (IN) | payer OTHER ==
[~2024-09-13] VITALS: Ht 180.3 cm; Wt 90.6 kg
[~2024-09-13 18:43] MED LIST changes: -AMLO2.5T4 PO; +ASPI-1005 PO; -ASPI-1197 PO; -ATEN25TA PO; -ATEN50TA PO; -ATOR10TA69 PO; +FEXO-263 PO; +LACT1CAP90 PO; -LOSA-417 PO; +LUBI24CA40 PO; +MONT-39 PO; -SPIR25TA6 PO
--- NOTE | 2024-09-13 19:44 | ERN ---
General Chief Complaint: Hypertension Stated Complaint: HTN Time Seen by MD: 18:45 Time Seen by Midlevel: 18:45 Source: patient History of Present Illness Initial Comments Patient is an 84-year-old male with a past medical history of coronary artery disease, high cholesterol, and hypertension presenting to the emergency department for evaluation of hypertension. The patient reports a home systolic blood pressure of 202. He states that for the last couple of days he has been feeling "off balance". Denies any chest pain, abdominal pain, nausea, vomiting, diarrhea, or any other symptom. Denies recent illness. Allergies: Coded Allergies: diltiazem (Verified Adverse Reaction, Unknown, DIZZINESS, 03/04/23) Home Meds Reported Medications Aspirin (ASPIRIN 81MG CHEW TAB) 81 Mg Tab.chew, 81 MG PO DAILY, TAB.CHEW 07/31/24 Montelukast Sodium (Montelukast Sodium) 10 Mg Tablet, 10 MG PO DAILY, TAB 07/31/24 Lactobacillus Acidophilus (Acidophilus Lactobacilli) 500 Million Cell Capsule, 1 EACH PO DAILY, CAP 07/31/24 Fexofenadine HCl (Fexofenadine HCl) 180 Mg Tablet, 180 MG PO DAILY, TAB 07/31/24 Lubiprostone (Amitiza) 24 Mcg Capsule, 24 MCG PO BID, CAP 07/31/24 Past Medical History Past Medical History: CAD, High Cholesterol, Heart Disease, Hypertension Past Surgical History: Cholecystectomy, CABG Surgical History Other: CARDIAC STENTS Social History Social History: Negative, Lives with family ROS Dictation CONSTITUTIONAL: Negative except for HPI HEAD/FACE: Negative except for HPI EENT: Negative except for HPI RESPIRATORY: Negative except for HPI GASTROINTESTINAL/ABDOMINAL: Negative except for HPI GENITOURINARY: Negative except for HPI MUSCULOSKELETAL: Negative except for HPI INTEGUMENTARY: Negative except for HPI NEUROLOGICAL/PSYCH: Negative except for HPI HEMATOLOGIC/LYMPHATIC: Negative except for HPI All Systems Negative, Except as noted above. 13 point review of systems assessed and all negative except for above. Physical Exam Physical Exam Dictation Vital Signs reviewed General Appearance: Alert, oriented x 3, no acute distress, well developed, nourished. Head and Face: non-traumatic. Eyes: PERRL, pink conjunctivas, eyelid no trauma, anterior chamber with arcus senilis. Ears: Pinnas intact and no signs of trauma or erythema ear canals clear and no discharge TM no erythema Nose: No discharge, no bleeding. Oropharynx: Mouth normal, tongue pink, pharynx clear,no erythema, tonsils no exudates, no abscesses noted, mucous membrane moist Neck: Supple, non-tender, no thyromegaly, no masses, no JVD, no bruits Breast:Deferred Chest:No tenderness, no crepitus, no paradoxical movement, no retractions Lungs:Clear, well-ventilated, symmetric, no rales, no wheezing, no rhonchi, no stridor, good breath sounds bilaterally Heart: Regular rate, regular rhythm, no murmur, no gallops Vascular: no peripheral edema, Abdomen: Soft, positive bowel sounds, nondistended, no guarding, nontender, no rebound, no masses no hepatomegaly, no splenomegaly, no Galdamez's s ign, no hernias. Rectal: Deferred Genital: Deferred Neurological: Normal speech, motor function intact, sensory function intact Musculoskeletal: Neck nontender, full range of motion, back nontender, full range of motion, Extremities: nontender, full range of motion Skin: Color pink, dry, no turgor, no rash, no lacerations, no abrasions, no contusions. Lymphatic: Deferred Results Laboratory and Microbiology Lab and Micro Result Laboratory Tests Test 09/13/24 20:35 White Blood Count 7.9 K/uL (4.8-10.8) Red Blood Count 4.72 MIL/uL (4.50-6.20) Hemoglobin 14.8 g/dL (14.0-18.0) Hematocrit 44.9 % (42-54) Mean Corpuscular Volume 95.1 fL (79-99) Mean Corpuscular Hemoglobin 31.4 pg (27.0-33.0) Mean Corpuscular Hemoglobin Concent 33.0 g/dL (32.0-36.0) Red Cell Distribution Width 12.1 % (11.0-15.5) Platelet Count 245 K/uL (130-400) Mean Platelet Volume 9.3 fL (7.5-10.5) Immature Granulocyte % (Auto) 0.4 % (0-1) Neutrophils (%) (Auto) 46.8 % (40.0-77.0) Lymphocytes (%) (Auto) 41.4 % (21.0-51.0) Monocytes (%) (Auto) 8.2 % (3.0-13.0) Eosinophils (%) (Auto) 2.4 % (0.0-8.0) Basophils (%) (Auto) 0.8 % (0.0-5.0) Neutrophils # (Auto) 3.7 K/uL (1.8-7.7) Lymphocytes # (Auto) 3.3 K/uL (1.0-4.8) Monocytes # (Auto) 0.7 K/uL (0.1-1.0) Eosinophils # (Auto) 0.19 K/uL (0.00-0.70) Basophils # (Auto) 0.06 K/uL (0.00-0.20) Absolute Immature Granulocyte (auto 0.03 K/uL (0-1) Nucleated Red Blood Cells 0.0 % (0.0-0.19) Prothrombin Time 10.8 SEC (9.6-11.6) Prothromb Time International Ratio 0.96 (0.85-1.15) Activated Partial Thromboplast Time 27.3 SEC (26.3-35.5) Sodium Level 137 mmol/L (136-145) Potassium Level 3.8 mmol/L (3.5-5.1) Chloride Level 102 mmol/L (101-111) Carbon Dioxide Level 31 mmol/L (21-32) Blood Urea Nitrogen 16 mg/dL (7-18) Creatinine 1.3 mg/dL (0.5-1.3) Glomerular Filtration Rate Calc 54 mL/min (>90) Random Glucose 104 mg/dL (70-105) Total Calcium 9.1 mg/dL (8.5-10.1) Magnesium Level 2.30 mg/dL (1.80-2.40) Total Creatine Kinase 69 U/L (21-232) # Troponin I High Sensitivity 94 ng/L (4-75) *H B-Type Natriuretic Peptide 220 pg/mL (0-100) H Labs Reviewed?: Yes MDM MDM: Differential diagnosis: ACS, intracranial bleed, hypertensive urgency, electrolyte abnormality, dehydration Rationale: Tests considered and ordered secondary to shared decision making include: Previous outside records reviewed: Old ER visits. Risk of complication and/or morbidity or mortality of patient management: None Medications-Per medication reconciliation Need for hospitalization: Patient does meet criteria for hospitalization. Need for emergency major/minor surgery: No There are no social concerns with this patient. Prescription drug management Prescriptions will include symptomatic care Patient's prior external medical records from other ER visits were reviewed by me as indicated. Prior testing and results from previous visits were reviewed. Prior tests were taken into account with medical decision making and resource utilization, independent historian/historians were used to obtain complete medical history. I independently interpreted the test that were performed, results were reviewed by me and considered findings on radiology if ordered. Medical management and examination interpretation discussions were had by me with other qualified healthcare professionals as indicated for the patient's care. ED Course Orders Procedure Category Date Status Time 12 Lead Ekg Tracing- EKG 09/13/24 Logged Technical 18:57 Cbc With Differential LAB 09/13/24 Complete 18:57 Basic Metabolic Panel LAB 09/13/24 Complete 18:57 Troponin I High LAB 09/13/24 Complete Sensitivity 18:57 Pt And Ptt LAB 09/13/24 Complete 18:57 Magnesium LAB 09/13/24 Complete 18:57 Creatine Kinase, Total LAB 09/13/24 Complete 18:57 B-Type Natriuretic LAB 09/13/24 Complete Peptide 18:57 Chest 1vw RAD 09/13/24 Resulted 18:57 Ct Head/Brain W/O CT 09/13/24 Resulted Contrast 18:57 Troponin I High LAB 09/13/24 In Process Sensitivity 21:35 Vital Signs Date Time Temp Pulse Resp B/P (MAP) Pulse Ox O2 Delivery O2 Flow Rate FiO2 09/13/24 18:45 97.9 72 18 181/88 98 Room Air [place] [id number] [address] IMAGING REPORT Signed PATIENT: FILIPE REHMAN MR#: [id number] : 1940 SEX: M AGE: 84 LOCATION: [facility] ORDER 58 STATUS: REG ER REPORT#: [id number] SERVICE 56 REASON: hypertensive, dizziness, ORDERING PHYSICIAN: GET COLVIN PROCEDURE: HEAD WO - CT HEAD/BRAIN W/O CONTRAST Exam Type: CT HEAD/BRAIN W/O CONTRAST Clinical Information: hypertensive, dizziness, Comparison: None CT Dose Index (CTDI): 57.33 mGy Dose Length Product (DLP): 956.79 total mGy-cm Findings: There is low attenuation throughout the periventricular white matter locations, consistent with chronic small vessel ischemic changes. No acute intra- or extra-axial fluid collections are seen. There is no evidence of acute or chronic hemorrhage. There is no mass effect or shift of midline structures. There are no areas to suggest acute infarct. The skull windows show no significant abnormalities. IMPRESSION: 1. CHRONIC SMALL VESSEL ISCHEMIC CHANGES. DICTATED BY: JONN SPENCER MD DATE: 09/13/241941 ELECTRONICALLY SIGNED BY: JONN SPENCER MD DATE: 09/13/241949 [place] [address] [place] [address] IMAGING REPORT Signed PATIENT: FILIPE REHMAN MR#: [id number] : 1940 SEX: M AGE: 84 LOCATION: [facility] ORDER 58 STATUS: REG ER [place] REPORT#: [id number] SERVICE 56 REASON: cp ORDERING PHYSICIAN: GET COLVIN PROCEDURE: CXR1VW - CHEST 1VW Exam Type: CHEST 1VW Clinical Information: cp Comparison: None Findings: The lungs are clear of infiltrates. The heart is enlarged. Bony and soft tissue structures of the chest wall are unremarkable. IMPRESSION: Cardiomegaly. Clear lungs. DICTATED BY: JONN SPENCER MD DATE: 09/13/241953 ELECTRONICALLY SIGNED BY: JONN SPENCER MD DATE: 09/13/241956 HEART Score Response (Comments) Value History: Low suspicion (0) 0 EKG: Repolarization changes 1 Age: > 65yrs (+2) 2 Risk Factors: 3+ risk factors (+2) 2 Initial Troponin: 1-3x Normal Limit (+1) 1 HEART Score Risk: Mod Risk for MACE (4-6) Total 6 DX & DISP Disposition: Inpatient Decision to Admit Date: Sep 13, 2024 Departure Impression: Primary Impression: Elevated troponin Additional Impression: Uncontrolled hypertension Condition: Stable Referrals: LAUREN ANDERSON MD (PCP) I have reviewed the case, and I agree with, Diagnosis and Plan I performed the substantive portion of the visit. I have reviewed and personally made and approve the management plan that is documented in the note by myself or the FRANTZ. I acknowledge for responsibility for the patient's management plan. GET COLVIN Sep 13, 2024 19:44
--- NOTE | 2024-09-13 19:50 | HMCIMG ---
Exam Type: CT HEAD/BRAIN W/O CONTRAST Clinical Information: hypertensive, dizziness, Comparison: None CT Dose Index (CTDI): 57.33 mGy Dose Length Product (DLP): 956.79 total mGy-cm Findings: There is low attenuation throughout the periventricular white matter locations, consistent with chronic small vessel ischemic changes. No acute intra- or extra-axial fluid collections are seen. There is no evidence of acute or chronic hemorrhage. There is no mass effect or shift of midline structures. There are no areas to suggest acute infarct. The skull windows show no significant abnormalities. IMPRESSION: 1. CHRONIC SMALL VESSEL ISCHEMIC CHANGES.
--- NOTE | 2024-09-13 19:57 | HMCIMG ---
Exam Type: CHEST 1VW Clinical Information: cp Comparison: None Findings: The lungs are clear of infiltrates. The heart is enlarged. Bony and soft tissue structures of the chest wall are unremarkable. IMPRESSION: Cardiomegaly. Clear lungs.
[2024-09-13 20:44] LABS: BASOPHILS # (AUTO) 0.06 K/uL (0.00-0.20); BASOPHILS % (AUTO) 0.8 % (0.0-5.0); EOSINOPHILS # (AUTO) 0.19 K/uL (0.00-0.70); EOSINOPHILS % (AUTO) 2.4 % (0.0-8.0); HEMATOCRIT 44.9 % (42-54); IMMATURE GRANULOCYTE ABSOLUTE 0.03 K/uL (0-1); LYMPHOCYTES # (AUTO) 3.3 K/uL (1.0-4.8); LYMPHOCYTES % (AUTO) 41.4 % (21.0-51.0); MEAN CORPUSCULAR HEMOGLOBIN 31.4 pg (27.0-33.0); MEAN CORPUSCULAR VOLUME 95.1 fL (79-99); MONOCYTES # (AUTO) 0.7 K/uL (0.1-1.0); MONOCYTES % (AUTO) 8.2 % (3.0-13.0); NEUTROPHILS # (AUTO) 3.7 K/uL (1.8-7.7); NEUTROPHILS % (AUTO) 46.8 % (40.0-77.0); PLATELET COUNT (AUTO) 245 K/uL (130-400); RED BLOOD CELL COUNT(AUTO) 4.72 MIL/uL (4.50-6.20); RED CELL DISTRIBUTION WIDTH 12.1 % (11.0-15.5); WHITE BLOOD COUNT (AUTO) 7.9 K/uL (4.8-10.8)
[2024-09-13 20:54] LABS: CREATININE 1.3 mg/dL (0.5-1.3); POTASSIUM 3.8 mmol/L (3.5-5.1)
[2024-09-13 20:56] LABS: INR 0.96 (0.85-1.15); PROTHROMBIN TIME 10.8 SEC (9.6-11.6)
[2024-09-13 20:57] LABS: PARTIAL THROMBOPLASTIN TIME 27.3 SEC (26.3-35.5)
[2024-09-13 21:03] LABS: MAGNESIUM 2.3 mg/dL (1.80-2.40)
[2024-09-13 21:12] LABS: B-TYPE NATRIURETIC PEPTIDE 220 pg/mL (0-100)
--- NOTE | 2024-09-13 22:55 | HP ---
[facility] PH[facility] Date of Service: Sep 13, 2024 Time of Service: 22:25 PCP: Antonino Mcdonald HISTORY OF PRESENT ILLNESS: This is an 84-year-old male with past medical history of Hypertension, coronary artery disease with cardiac stent times two and CABG x3 who presents to the ED complaints of elevated blood pressure with a systolic BP at home above 200mmHg and feeling off balance .Upon further evaluation patient states he woke up not feeling well today .Patient states he usually walk 1 mile everyday and do some exercises like weight lifting every other day,however today he feels like a sharp pain around his left side of chest and lasted only for 2 seconds around the afternoon and he usually gets it every 10 days ever since he had a stent placed but he also notice he has having shortness of breath for the past 4 days that has been getting worse .since his BP is also high he decided to come to the ED for evaluation.Patient states his entry level marketing assistant is and the one who did his stents is . Seen and examined patient in the ER awake,alert and oriented.Patient denies headache,fever,chills,palpitation,nausea,vomiting , edema and abdominal pain. Vital signs temperature 97.9, heart rate 72, respiration 18, blood pressure 181/88, saturation 98% on room air. Labs: CBC unremarkable. BNP 220, troponin 94 to 79 chemistries normal. 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 Chest x-ray result revealed cardiomegaly clear lungs. CT head without contrast result revealed chronic small-vessel ischemic changes. We will admit patient for further medical management. REVIEW OF SYSTEMS CONSTITUTIONAL: Denies fevers, chills, or night sweats. No unintentional weight loss reported. NEUROLOGICAL: Denies headache, amaurosis fugax, motor weakness, sensory deficit, vertigo/spinning sensation, gait abnormalities, or tremors. ENT: No hearing loss, otalgia, otorrhea, rhinitis, rhinorrhea, hoarseness, or sore throat. CARDIOVASCULAR: Complain of left-sided sharp pain lasted for 2 seconds happened at home in the afternoon Denies dyspnea on exertion, orthopnea, paroxysmal nocturnal dyspnea, palpitations, life-threatening arrhythmias, claudication. PULMONARY: Complain of shortness of breaths Denies cough, phlegm/sputum, hemoptysis, pleuritic chest pain. SLEEP: Denies morning headaches, daytime somnolence or napping. Denies difficulty falling asleep, staying asleep, waking from sleep. Denies knowledge of snoring. GASTROINTESTINAL: Denies any type of dysphagia to either liquids or solids. Denies nausea, vomiting, pyrosis, early satiety, abdominal pain, diarrhea, constipation, or changes in stool consistency or caliber. Denies coffee-ground emesis, hematemesis, hematochezia, or melanotic stools. GENITOURINARY: Denies frequency, urgency, nocturia, hematuria or incontinence (Storage/Irritative symptoms.) Low urinary stream, straining to void, urinary intermittency or hesitancy, splitting of the voiding stream, terminal dribbling. ENDOCRINOLOGIC: Denies polyuria, polydipsia, polyphagia or heat/cold intolerances. HEMATOLOGIC: Denies thrombophilia/previous clots, or coagulopathy/bleeding disorders. ONCOLOGIC: Denies personal history of malignancy. DERMATOLOGIC: Denies rashes or pruritus. PSYCHIATRIC: Denies any suicidal or homicidal ideation. Denies hallucinations. PAST MEDICAL HISTORY: [Hypertension, coronary artery disease with cardiac stent times two and CABG x3 ] PAST SURGICAL HISTORY: [CABG x3 in 2013 in [place] and cardiac stent x2 [address] Gonsales ] PAST SOCIAL HISTORY: [ Patient lives with . Patient states he walks mi exercise every day. Patient denies alcohol tobacco and recreational drug use] FAMILY HISTORY: [Cardiovascular disease ] Coded Allergies: diltiazem (Verified Adverse Reaction, Unknown, DIZZINESS, 03/04/23) PHYSICAL EXAM GENERAL APPEARANCE: The patient is awake, alert, and oriented, in no acute cardiopulmonary distress. NEUROLOGICAL: Cranial nerves II-XII grossly intact. Motor is 5/5 in bilateral upper and lower extremities proximal to distal. No sensory deficits. HEENT: Face is symmetric. Pupils are equal and reactive. Extraocular movements are intact. NECK: Supple. No JVD. No thyromegaly. No submental, submandibular, pre- /postauricular, occipital or supraclavicular lymphadenopathy. CHEST: Normal chest expansion. No Telemetry. LUNGS: Absence of any rales, rhonchi or any wheezing. CARDIOVASCULAR: Regular. S1 and S2 normal. No appreciable rubs, murmurs or gallops. ABDOMEN: Soft, nontender, and nondistended. There is no rebound, voluntary guarding, or rigidity. : Deferred. No Robert. EXTREMITIES: Non-edematous and not cyanotic. No clubbing. Good capillary refill. SKIN: No skin breakdown. Vital Sign (Last 24 Hours) 09/13/24 18:45 Temp 97.9 Pulse 72 Resp 18 B/P (MAP) 181/88 Pulse Ox 98 O2 Delivery Room Air LABS: Laboratory: Test 09/13/24 21:28 09/13/24 20:35 Range/Units Troponin I High Sensitivity 79 *H 4-75 ng/L White Blood Count 7.9 4.8-10.8 K/uL Red Blood Count 4.72 4.50-6.20 MIL/uL Hemoglobin 14.8 14.0-18.0 g/dL Hematocrit 44.9 42-54 % Mean Corpuscular Volume 95.1 79-99 fL Mean Corpuscular Hemoglobin 31.4 27.0-33.0 pg Mean Corpuscular Hemoglobin Concent 33.0 32.0-36.0 g/dL Red Cell Distribution Width 12.1 11.0-15.5 % Platelet Count 245 130-400 K/uL Mean Platelet Volume 9.3 7.5-10.5 fL Immature Granulocyte % (Auto) 0.4 0-1 % Neutrophils (%) (Auto) 46.8 40.0-77.0 % Lymphocytes (%) (Auto) 41.4 21.0-51.0 % Monocytes (%) (Auto) 8.2 3.0-13.0 % Eosinophils (%) (Auto) 2.4 0.0-8.0 % Basophils (%) (Auto) 0.8 0.0-5.0 % Neutrophils # (Auto) 3.7 1.8-7.7 K/uL Lymphocytes # (Auto) 3.3 1.0-4.8 K/uL Monocytes # (Auto) 0.7 0.1-1.0 K/uL Eosinophils # (Auto) 0.19 0.00-0.70 K/uL Basophils # (Auto) 0.06 0.00-0.20 K/uL Absolute Immature Granulocyte (auto 0.03 0-1 K/uL Nucleated Red Blood Cells 0.0 0.0-0.19 % Prothrombin Time 10.8 9.6-11.6 SEC Prothromb Time International Ratio 0.96 0.85-1.15 Activated Partial Thromboplast Time 27.3 26.3-35.5 SEC Sodium Level 137 136-145 mmol/L Potassium Level 3.8 3.5-5.1 mmol/L Chloride Level 102 101-111 mmol/L Carbon Dioxide Level 31 21-32 mmol/L Blood Urea Nitrogen 16 7-18 mg/dL Creatinine 1.3 0.5-1.3 mg/dL Glomerular Filtration Rate Calc 54 >90 mL/min Random Glucose 104 70-105 mg/dL Total Calcium 9.1 8.5-10.1 mg/dL Magnesium Level 2.30 1.80-2.40 mg/dL Total Creatine Kinase 69 # 21-232 U/L B-Type Natriuretic Peptide 220 H 0-100 pg/mL DIAGNOSTICS / RADIOLOGY: [ ] ASSESSMENT: Uncontrolled hypertension POA Elevated troponin rule out ACS POA Coronary artery disease with cardiac stent x2 and CABG x3 POA Elevated BNP R/O CHF POA PLAN: We will admit patient in medical telemetry We will start on heart healthy diet Start on aspirin 81 mg p.o. daily We will trend troponin q.6 x3 Start on famotidine 20 mg p.o. b.i.d. for GI prophylaxis We will start on Lovenox 30 mg subQ daily for DVT prophylaxis We will add p.r.n. medication for fever pain nausea and vomiting Daily weight and strict I&O We will obtain echocardiogram We will seek Cardiology consultation We will replace electrolytes as needed per protocol We will check labs in a.m. Further recommendations to follow depending upon hospitalization course Case discussed with the attending MD and came up with the above treatment and plan of care ADVANCED CARE PLANNING 1. Which of the following were discussed? Hospice Care - No Therapeutic options - Yes Advance Directives - No Other discussions - 2. Discussed with who? Patient 3. Voluntary nature of this service was explained to the patient? Yes 4. Amount of time spent - ___22____ 5. Reviewed by Physician? (if this service was performed by NPP) Yes Patient seen and examined by me. Agree with note by DICE MAKER SEE ADDITIONAL ORDERS PER CHART DISCUSSED WITH NURSING STAFF LELIA ANGELESP Sep 13, 2024 22:55
[2024-09-13] MEDS ORDERED: NITROGLYCERIN 0.4 MG SL TAB SL PRN (23:00)
[2024-09-13] MEDS ORDERED: PoTASSium chloRIDE 20MEQ/100ML 100 ML IV PRN (23:00)
[2024-09-13] MEDS ORDERED: MAGNESIUM 2GM PREMIX 50ML 50 ML IV PRN (23:00)
[2024-09-13] MEDS ORDERED: PoTASSium chl 10% ELIXIR 20MEQ 20 MEQ/15 ML UDCUP PO PRN (23:00)
--- NOTE | 2024-09-14 00:15 | NUR ---
LORI ANGELES AWARE OF TRENDING TROPS
--- NOTE | 2024-09-14 06:48 | NUR ---
PATIENT REPORTS HE IS NOT TAKING ANY PRESCRIBED MEDICATIONS CURRENTLY
[2024-09-14 07:30] LABS: BASOPHILS # (AUTO) 0.04 K/uL (0.00-0.20); BASOPHILS % (AUTO) 0.8 % (0.0-5.0); EOSINOPHILS # (AUTO) 0.12 K/uL (0.00-0.70); EOSINOPHILS % (AUTO) 2.3 % (0.0-8.0); HEMATOCRIT 42.3 % (42-54); IMMATURE GRANULOCYTE ABSOLUTE 0.01 K/uL (0-1); LYMPHOCYTES # (AUTO) 2.2 K/uL (1.0-4.8); LYMPHOCYTES % (AUTO) 42.3 % (21.0-51.0); MEAN CORPUSCULAR HEMOGLOBIN 31.8 pg (27.0-33.0); MEAN CORPUSCULAR HGB CONC 33.8 g/dL (32.0-36.0); MEAN CORPUSCULAR VOLUME 94.2 fL (79-99); MONOCYTES # (AUTO) 0.5 K/uL (0.1-1.0); MONOCYTES % (AUTO) 9.1 % (3.0-13.0); NEUTROPHILS # (AUTO) 2.4 K/uL (1.8-7.7); NEUTROPHILS % (AUTO) 45.3 % (40.0-77.0); PLATELET COUNT (AUTO) 234 K/uL (130-400); RED BLOOD CELL COUNT(AUTO) 4.49 MIL/uL (4.50-6.20); RED CELL DISTRIBUTION WIDTH 12.2 % (11.0-15.5); WHITE BLOOD COUNT (AUTO) 5.3 K/uL (4.8-10.8)
--- NOTE | 2024-09-14 07:38 | EKG ---
[facility] Test Date: 2024-09-13 Test Time: 20:33:54 Pat Name: FILIPE REHMAN Department: [facility] Room: 307 Gender: M Poker In: [id number] : 1940 Requested By: GET COLVIN Order Number: [id number] Reading MD: Nguyễn Emanuel Measurements Intervals [place] Rate: 67 P: 26 NE: 204 QRS: -40 QRSD: 160 T: 10 QT: 485 QTc: 503 Interpretive Statements Sinus rhythm Multiple premature complexes, vent & supraven RBBB and LAFB Compared to ECG 07/31/2024 06:04:34 Sinus arrhythmia no longer present Bifascicular block no longer present Electronically Signed On 09-15-2024 06:55:50 TOLL COLLECTOR SUPERVISOR by Nguyễn Emanuel Please click the below link to view image of tracing.
[2024-09-14 07:52] LABS: ALBUMIN 3.4 g/dL (3.5-5.0); BILIRUBIN,TOTAL 0.7 mg/dL (0.2-1.0); CREATININE 1.2 mg/dL (0.5-1.3); MAGNESIUM 2.2 mg/dL (1.80-2.40); THYROID STIMULATING HORMONE 5.51 uIU/mL (0.36-3.74); TOTAL PROTEIN, SERUM 7.5 g/dL (6.0-8.3)
[2024-09-14 07:56] LABS: HEMOGLOBIN A1C 5.4 % (4.0-6.0)
[2024-09-14] MEDS: FAMOTIDINE 20MG TAB PO SCH (08:15)
[2024-09-14] MEDS: ENOXAPARIN SODIUM 30 MG/0.3 ML SQ SCH (08:15)
[2024-09-14] MEDS: ASPIRIN 81 MG EC TAB PO SCH (08:15)
[2024-09-14] MEDS: carVEDIlol 3.125 MG TABLET PO SCH (12:12)
--- NOTE | 2024-09-14 12:26 | NUR ---
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 Pt states lost her cell phone and he has his cell with him. His friend David Vera [phone] is checking on , since she does not drive, while pt is admitted. Pt very active, walks a mile a day and lift weights. Does not use any DME or in home care services. PCP is rosalie Muñiz at [place] for care and meds. Pt denies dc needs and will dc home Addendum: 09/14/24 at 1232 by BALDEMAR VENEGAS Amended: Links added.
--- NOTE | 2024-09-14 14:37 | CONS ---
Cardiology Consult Note Attending Adult Services Librarian: Dr. Corbin Goodman Primary Adult Services Librarian: Dr. Corbin Mesa Consulting Physician: Hospitalist Date of Service: 09/14/2024 Reason for Consult: Elevated troponin HPI: This is an 84y/o male with a past medical history of HTN, HLP, PAD, CVI, paroxysmal atrial fibrillation, refusing anticoagulation, CAD s/p 3V CABG (DONOHUE- LAD, SVG-DIAG, SVG-PDA) done in 2004, s/p PCI with overlapping ALFRED placement (Promus 2.75x12 mm and 2.5x12 mm) in the proximal LCx done on 07/12/2013, with 3/3 grafts patent, multiple medication intolerances, and noncompliance who presents with lightheadedness of 1 month in duration. The symptoms began spontaneously and over the ensuing timeframe have been constant and have occurred on a daily basis. The symptoms would occur various times throughout the day, both at rest and with physical activity, but were not exacerbated or alleviated by anything. Associated symptoms include gait instability and u ncontrolled HTN (SBP>200 mmHg). Pertinent negatives include headache, syncope, chest pain, chest pressure, palpitations, shortness of breath, PND, orthopnea, abdominal pain, nausea, vomiting, weight gain, lower extremity swelling, diaphoresis, fever, or chills. The patient's progression of symptoms prompted him to seek a higher level of care. While in the ED, laboratory data identified an elevated HS troponin I level. Cardiology was consulted for treatment recommendations. PMH: Listed above PSH: Listed above FH: Noncontributory SH: Denies alcohol, tobacco, or illicit drug use. Allergies: Coded Allergies: diltiazem (Verified Adverse Reaction, Unknown, DIZZINESS, 03/04/23) Review of systems: General: Denies fever or chills. HEENT: Denies changes in vision, earache or sore throat. Neck: Denies pain or stiffness. Cardio: As per the HPI. Pulm: Denies SOB, coughing or wheezing. GI: Denies abdominal pain, nausea, vomiting, diarrhea, or constipation. MSK: Denies decreased ROM or joint pain. Heme: Denies anemia, easy bruising, or bleeding. Neuro: As per the HPI. Psyche: Denies anxiety, depression, or suicidal ideation. Physical Exam: Vital Signs Date Time Temp Pulse Resp B/P (MAP) Pulse Ox O2 Delivery O2 Flow Rate FiO2 09/14/24 12:12 159/72 09/14/24 11:30 98.1 74 13 98 Room Air* 0 21 General: Alert and oriented x 3. NAD HEENT: NC/AT. Oral mucosa is moist. Neck: No masses, JVD, or carotid bruits Lungs: NRD. SCM. Bilateral air entry. CTA. No obvious wheezing, rales or rhonchi. Cardio: Regular rate. Normal S1 and S2. +S4. Frequent ectopic beats noted. No obvious murmurs, gallops, or rubs noted. Abdomen: Soft. NT. ND. Normal active bowel sounds x 4 quadrants. Extremities: Diminished throughout. No edema, clubbing, or cyanosis. Neuro: CN II-XII were grossly intact. No obvious focal deficits. Labs: Laboratory Tests Test 09/13/24 20:35 09/13/24 21:28 09/13/24 23:39 09/14/24 07:11 Range/Units White Blood Count 7.9 5.3 # 4.8-10.8 K/uL Red Blood Count 4.72 4.49 L 4.50-6.20 MIL/uL Hemoglobin 14.8 14.3 14.0-18.0 g/dL Hematocrit 44.9 42.3 42-54 % Mean Corpuscular Volume 95.1 94.2 79-99 fL Mean Corpuscular Hemoglobin 31.4 31.8 27.0-33.0 pg Mean Corpuscular Hemoglobin Concent 33.0 33.8 32.0-36.0 g/dL Red Cell Distribution Width 12.1 12.2 11.0-15.5 % Platelet Count 245 234 130-400 K/uL Mean Platelet Volume 9.3 10.1 7.5-10.5 fL Immature Granulocyte % (Auto) 0.4 0.2 0-1 % Neutrophils (%) (Auto) 46.8 45.3 40.0-77.0 % Lymphocytes (%) (Auto) 41.4 42.3 21.0-51.0 % Monocytes (%) (Auto) 8.2 9.1 3.0-13.0 % Eosinophils (%) (Auto) 2.4 2.3 0.0-8.0 % Basophils (%) (Auto) 0.8 0.8 0.0-5.0 % Neutrophils # (Auto) 3.7 2.4 1.8-7.7 K/uL Lymphocytes # (Auto) 3.3 2.2 1.0-4.8 K/uL Monocytes # (Auto) 0.7 0.5 0.1-1.0 K/uL Eosinophils # (Auto) 0.19 0.12 0.00-0.70 K/uL Basophils # (Auto) 0.06 0.04 0.00-0.20 K/uL Absolute Immature Granulocyte (auto 0.03 0.01 0-1 K/uL Nucleated Red Blood Cells 0.0 0.0 0.0-0.19 % Prothrombin Time 10.8 9.6-11.6 SEC Prothromb Time International Ratio 0.96 0.85-1.15 Activated Partial Thromboplast Time 27.3 26.3-35.5 SEC Sodium Level 137 139 136-145 mmol/L Potassium Level 3.8 4.0 3.5-5.1 mmol/L Chloride Level 102 105 101-111 mmol/L Carbon Dioxide Level 31 29 21-32 mmol/L Blood Urea Nitrogen 16 13 7-18 mg/dL Creatinine 1.3 1.2 0.5-1.3 mg/dL Glomerular Filtration Rate Calc 54 59 >90 mL/min Random Glucose 104 106 H 70-105 mg/dL Total Calcium 9.1 8.7 8.5-10.1 mg/dL Magnesium Level 2.30 2.20 1.80-2.40 mg/dL Total Creatine Kinase 69 # 21-232 U/L Troponin I High Sensitivity 94 *H 79 *H 88 *H 92 *H 4-75 ng/L B-Type Natriuretic Peptide 220 H 0-100 pg/mL Hemoglobin A1c 5.4 4.0-6.0 % Estimated Average Glucose (eAG) 108 70-126 mg/dL Total Bilirubin 0.7 0.2-1.0 mg/dL Aspartate Amino Transf (AST/SGOT) 16 10-37 U/L Alanine Aminotransferase (ALT/SGPT) 15 12-78 U/L Alkaline Phosphatase 82 50-136 U/L Total Protein 7.5 6.0-8.3 g/dL Albumin 3.4 L 3.5-5.0 g/dL Triglycerides Level 162 30-200 mg/dL Cholesterol Level 149 <200 mg/dL LDL Cholesterol 86 0-99 mg/dL HDL Cholesterol 38 29-71 mg/dL Thyroid Stimulating Hormone (TSH) 5.51 H 0.36-3.74 uIU/mL Test 09/14/24 11:04 Range/Units Troponin I High Sensitivity 90 *H 4-75 ng/L Assessment: -Hypertensive emergency -Elevated troponin -Frequent PVCs/PACs -HTN -HLP -PAD -CVI -Paroxysmal atrial fibrillation, refusing anticoagulation -CAD s/p 3V CABG (DONOHUE-LAD, SVG-DIAG, SVG-PDA) done in 2004, s/p PCI with overlapping ALFRED placement (Promus 2.75x12 mm and 2.5x12 mm) in the proximal LCx done on 07/12/2013, with 3/3 grafts patent -Multiple medication intolerances -Noncompliance Plan: 1. Hypertensive emergency -End organ damage: Elevated troponin -24H telemetry: 126-181/54-88 mmHg -Home SBP > 200 mmHg -In order to optimize BP control, we will start the patient on carvedilol 3.125 mg BID. Antihypertensive therapy should be titrated in order to achieve a BP goal of less than 140/90 mmHg. 2. Elevated troponin -Stable -Cardiac enzymes-HS troponin I: 94>79>88>92 -The elevated troponin is thought to be a type II AK (demand ischemia) induced by the hypertensive emergency and not secondary to ACS. -As a result, we do not recommend any further ischemic cardiac workup and instead we recommend optimize BP control. -In the meantime, the patient will continue on aspirin 81 mg daily and carvedilol 3.125 mg BID. 3. Frequent PVCs/PACs -Bedside telemetry: Sinus rhythm with frequent PACs and PVCs -In order to optimize HR control, we will start the patient on carvedilol 3.125 mg BID. -Please keep the patient on continuous telemetry monitoring and maintain e lectrolytes within normal parameters. Thank you for this interesting consult and allowing us to participate in the care of your patient. This case was seen and discussed with my Supervising Physician, Dr. Corbin Goodman, and the above mentioned plan was formulated and agreed upon. -Consult Note written by Aye Murcia, MSN, STRING CUTTER, AGACNP-AYE CAMPBELL NP Sep 14, 2024 14:37
--- NOTE | 2024-09-14 14:44 | PN ---
[facility] PROGRESS NOTE Date of Service: Sep 14, 2024 Time of Service: 14:28 SUBJECTIVE: This is an 84-year-old male with past medical history of Hypertension, coronary artery disease with cardiac stent times two and CABG x3 who presents to the ED complaints of elevated blood pressure with a systolic BP at home above 200mmHg and feeling off balance .Upon further evaluation patient states he woke up not feeling well today .Patient states he usually walk 1 mile everyday and do some exercises like weight lifting every other day,however today he feels like a sharp pain around his left side of chest and lasted only for 2 seconds around the afternoon and he usually gets it every 10 days ever since he had a stent placed but he also notice he has having shortness of breath for the past 4 days that has been getting worse .since his BP is also high he decided to come to the ED for evaluation.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 Seen and examined patient in the ER awake,alert and oriented.Patient denies headache,fever,chills,palpitation,nausea,vomiting , edema and abdominal pain. Vital signs temperature 97.9, heart rate 72, respiration 18, blood pressure 181/88, saturation 98% on room air. Labs: CBC unremarkable. BNP 220, troponin 94 to 79 chemistries normal. 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 Chest x-ray result revealed cardiomegaly clear lungs. CT head without contrast result revealed chronic small-vessel ischemic changes. We will admit patient for further medical management. 09/14/24 Patient was patient was seen and examined at bedside in ED 12. He is awake, alert and oriented. His vitals are blood pressure 154/70, pulse rate 74, respiratory rate 13, SpO2 98% on room air, T-max 98.1 . He currently denies chest pain or shortness of breath or dizziness or palpitations or diaphoresis. Remarkable labs are glucose 106, TSH 5.51. His troponins have been trending downward from 94, 79, 88, 92, 90. Pending 2D echo results. Cardiology has been consulted, recommended to start on carvedilol 3.125mg. He is very noncompliant with his medications, he was previously prescribed medications for antianginal therapy and statins but could not take them due to side effects, says blood pressure medications make him dizzy. REVIEW OF SYSTEMS CONSTITUTIONAL: Denies fevers, chills, or night sweats. No unintentional weight loss reported. NEUROLOGICAL: Denies headache, amaurosis fugax, motor weakness, sensory deficit, vertigo/spinning sensation, gait abnormalities, or tremors. ENT: No hearing loss, otalgia, otorrhea, rhinitis, rhinorrhea, hoarseness, or s ore throat. CARDIOVASCULAR: Complain of left-sided sharp pain lasted for 2 seconds happened at home in the afternoon Denies dyspnea on exertion, orthopnea, paroxysmal nocturnal dyspnea, palpitations, life-threatening arrhythmias, claudication. PULMONARY: Complain of shortness of breaths Denies cough, phlegm/sputum, hemoptysis, pleuritic chest pain. SLEEP: Denies morning headaches, daytime somnolence or napping. Denies difficu lty falling asleep, staying asleep, waking from sleep. Denies knowledge of snoring. GASTROINTESTINAL: Denies any type of dysphagia to either liquids or solids. Denies nausea, vomiting, pyrosis, early satiety, abdominal pain, diarrhea, constipation, or changes in stool consistency or caliber. Denies coffee-ground emesis, hematemesis, hematochezia, or melanotic stools. GENITOURINARY: Denies frequency, urgency, nocturia, hematuria or incontinence (Storage/Irritative symptoms.) Low urinary stream, straining to void, urinary intermittency or hesitancy, splitting of the voiding stream, terminal dribbling. ENDOCRINOLOGIC: Denies polyuria, polydipsia, polyphagia or heat/cold intol erances. HEMATOLOGIC: Denies thrombophilia/previous clots, or coagulopathy/bleeding disorders. ONCOLOGIC: Denies personal history of malignancy. DERMATOLOGIC: Denies rashes or pruritus. PSYCHIATRIC: Denies any suicidal or homicidal ideation. Denies hallucinations. PHYSICAL EXAM GENERAL APPEARANCE: The patient is awake, alert, and oriented, in no acute cardiopulmonary distress. NEUROLOGICAL: Cranial nerves II-XII grossly intact. Motor is 5/5 in bilateral upper and lower extremities proximal to distal. No sensory deficits. HEENT: Face is symmetric. Pupils are equal and reactive. Extraocular movements are intact. NECK: Supple. No JVD. No thyromegaly. No submental, submandibular, pre- /postauricular, occipital or supraclavicular lymphadenopathy. CHEST: Normal chest expansion. No Telemetry. LUNGS: Absence of any rales, rhonchi or any wheezing. CARDIOVASCULAR: Regular. S1 and S2 normal. No appreciable rubs, murmurs or gallops. ABDOMEN: Soft, nontender, and nondistended. There is no rebound, voluntary guarding, or rigidity. : Deferred. No Robert. EXTREMITIES: Non-edematous and not cyanotic. No clubbing. Good capillary refill. SKIN: No skin breakdown. Vital Signs (last 8hr) Date Time Temp Pulse Resp B/P (MAP) Pulse Ox O2 Delivery O2 Flow Rate FiO2 09/14/24 12:12 159/72 09/14/24 11:30 98.1 74 13 154/70 98 Room Air* 0 21 09/14/24 10:41 98.1 70 13 156/80 99 Room Air* 0 21 09/14/24 07:53 98.1 67 15 153/79 97 Room Air* 0 21 LABS: Laboratory: Test 09/14/24 11:04 09/14/24 07:11 09/13/24 20:35 Range/Units Troponin I High Sensitivity 90 *H 4-75 ng/L White Blood Count 5.3 # 4.8-10.8 K/uL Red Blood Count 4.49 L 4.50-6.20 MIL/uL Hemoglobin 14.3 14.0-18.0 g/dL Hematocrit 42.3 42-54 % Mean Corpuscular Volume 94.2 79-99 fL Mean Corpuscular Hemoglobin 31.8 27.0-33.0 pg Mean Corpuscular Hemoglobin Concent 33.8 32.0-36.0 g/dL Red Cell Distribution Width 12.2 11.0-15.5 % Platelet Count 234 130-400 K/uL Mean Platelet Volume 10.1 7.5-10.5 fL Immature Granulocyte % (Auto) 0.2 0-1 % Neutrophils (%) (Auto) 45.3 40.0-77.0 % Lymphocytes (%) (Auto) 42.3 21.0-51.0 % Monocytes (%) (Auto) 9.1 3.0-13.0 % Eosinophils (%) (Auto) 2.3 0.0-8.0 % Basophils (%) (Auto) 0.8 0.0-5.0 % Neutrophils # (Auto) 2.4 1.8-7.7 K/uL Lymphocytes # (Auto) 2.2 1.0-4.8 K/uL Monocytes # (Auto) 0.5 0.1-1.0 K/uL Eosinophils # (Auto) 0.12 0.00-0.70 K/uL Basophils # (Auto) 0.04 0.00-0.20 K/uL Absolute Immature Granulocyte (auto 0.01 0-1 K/uL Nucleated Red Blood Cells 0.0 0.0-0.19 % Sodium Level 139 136-145 mmol/L Potassium Level 4.0 3.5-5.1 mmol/L Chloride Level 105 101-111 mmol/L Carbon Dioxide Level 29 21-32 mmol/L Blood Urea Nitrogen 13 7-18 mg/dL Creatinine 1.2 0.5-1.3 mg/dL Glomerular Filtration Rate Calc 59 >90 mL/min Random Glucose 106 H 70-105 mg/dL Hemoglobin A1c 5.4 4.0-6.0 % Estimated Average Glucose (eAG) 108 70-126 mg/dL Total Calcium 8.7 8.5-10.1 mg/dL Magnesium Level 2.20 1.80-2.40 mg/dL Total Bilirubin 0.7 0.2-1.0 mg/dL Aspartate Amino Transf (AST/SGOT) 16 10-37 U/L Alanine Aminotransferase (ALT/SGPT) 15 12-78 U/L Alkaline Phosphatase 82 50-136 U/L Total Protein 7.5 6.0-8.3 g/dL Albumin 3.4 L 3.5-5.0 g/dL Triglycerides Level 162 30-200 mg/dL Cholesterol Level 149 <200 mg/dL LDL Cholesterol 86 0-99 mg/dL HDL Cholesterol 38 29-71 mg/dL Thyroid Stimulating Hormone (TSH) 5.51 H 0.36-3.74 uIU/mL Prothrombin Time 10.8 9.6-11.6 SEC Prothromb Time International Ratio 0.96 0.85-1.15 Activated Partial Thromboplast Time 27.3 26.3-35.5 SEC Total Creatine Kinase 69 # 21-232 U/L B-Type Natriuretic Peptide 220 H 0-100 pg/mL Current Medications Medications (Trade) Dose Ordered Sig/Burak Route PRN Reason Start Time Stop Time Status Last Admin Dose Admin Aspirin (Aspirin 81mg Ec Tab) 81 mg DAILY PO 09/14/24 09:00 10/14/24 08:59 09/14/24 08:15 81 MG Carvedilol (Coreg 3.125MG) 3.125 mg BID PO 09/14/24 11:30 10/14/24 11:29 09/14/24 12:12 3.125 MG Enoxaparin Sodium (Lovenox) 30 mg DAILY SQ 09/14/24 09:00 10/14/24 08:59 09/14/24 08:15 30 MG Famotidine (Pepcid 20mg Tab) 20 mg Q24H PO 09/14/24 09:00 10/14/24 08:59 09/14/24 08:15 20 MG Hydralazine HCl (APRESOLine 20MG INJ) 10 mg Q6H PRN IV ADMINISTER FOR SBP > 160 09/13/24 23:00 10/13/24 22:59 Magnesium Sulfate 50 ml @ 0 mls/hr PROTOCOL PRN IV OTHER [SEE ORDER COMMENTS] 09/13/24 23:00 10/13/24 22:59 Nitroglycerin (Nitrostat) 0.4 mg PROTOCOL PRN SL CHEST PAIN 09/13/24 23:00 10/13/24 22:59 Potassium Chloride 100 ml @ 100 mls/hr AD PRN IV POTASSIUM PROTOCOL 09/13/24 23:00 10/13/24 22:59 Potassium Chloride (K-Dur/Klor-Con 20meq) 20 meq AD PRN PO POTASSIUM PROTOCOL 09/13/24 23:00 10/13/24 22:59 Potassium Chloride (KCl 10% Elixir 20meq/15ml) 20 meq AD PRN PO POTASSIUM PROTOCOL 09/13/24 23:00 10/13/24 22:59 DIAGNOSTICS / RADIOLOGY: ELECTRO CARDIOGRAM Draft PATIENT: FILIPE REHMAN LMR#: [id number] : 1940 SEX: M AGE: 84 LOCATION: [facility] ROOM/BED: ED-12 ORDER [id number] REPORT#: [id number] REASON: ORDERING PHYSICIAN: GET COLVIN PROCEDURE: EKG - 12 LEAD EKG TRACING- TECHNICAL [facility] Test Date: 2024-09-13 Test Time: 20:33:54 Pat Name: FILIPE REHMAN Department: [facility] Room: ED Gender: Male Family Literacy Coordinator: [id number] : 1940 Requested By: GET COLVIN Order Number: [id number] Reading MD: Measurements Intervals [place] Rate: 67 P: 26 TN: 204 QRS: -40 QRSD: 160 T: 10 QT: 485 QTc: 503 Interpretive Statements Sinus rhythm Multiple premature complexes, vent & supraven RBBB and LAFB No previous ECG available for comparison Please click the below link to view image of tracing. ASSESSMENT: Uncontrolled hypertension POA Elevated troponin rule out ACS POA Coronary artery disease with cardiac stent x2 and CABG x3 POA Elevated BNP R/O CHF POA Medication noncompliance POA Elevated TSH POA PLAN: Uncontrolled hypertension Elevated troponin Trend troponin q.6 x3 Aspirin 81 mg p.o. daily Hydralazine and NG PRN 2D echo EKG changes - sinus rhythm 67 multiple premature complex right bundle branch b lock and left anterior fascicular block Cardiology consultation - Carvedilol 3.125mg bid Daily weight and strict I&O Elevated BNP - 220 2D echo EKG - sinus rhythm 67 multiple premature complex right bundle branch block and left anterior fascicular block CXR - Cardiomegaly with clear lungs Trend troponins q.6 x3 Elevated TSH could cause elevated BNP Diuretics if needed Elevated TSH Check T3, T4 levels Denies weight gain, no edema We will admit patient in medical telemetry We will start on heart healthy diet Start on famotidine 20 mg p.o. b.i.d. for GI prophylaxis Lovenox 30 mg subQ daily for DVT prophylaxis We will add p.r.n. medication for fever pain nausea and vomiting Replace electrolytes as needed per protocol We will check labs in a.m. Further recommendations to follow depending upon hospitalization course ATTESTATION BY PHYSICIAN I have seen and examined the patient. I reviewed the documentation, medical decision making, and treatment plan as noted by the resident provider above. I agree with the findings and plan of care. BhadriBebo louie MD, NIHITHA MD Sep 14, 2024 14:44
[2024-09-14 18:55] VITALS: BP 193/104; PULSE 67; RESP 18; TEMP 98.3
[2024-09-14] MEDS: hydrALAZine 20MG/ML VIAL IV PRN (19:07)
[2024-09-14 19:14] VITALS: O2SAT 98
[2024-09-14 20:00] VITALS: O2SAT 98
--- NOTE | 2024-09-14 23:21 | HMCSR ---
APPROVED REPORT EXAM: Limited two-dimensional and M-mode echocardiogram with Doppler and color Doppler. INDICATION ICD: R06.02 Shortness of breath 2D Dimensions RVDd3.9 cmLVEF(%)31.6 (>50%)LA ESV INDEX (4CH)31.10 mL/m2 IVSd1.1 (0.7-1.1cm)FS(%)15 % LVDd5.3 (3.8-5.6cm)LA (2D)4.0 (1.6-4.0cm) PWd1.3 (0.7-1.1cm)Ao Root(2D)3.8 (2.0-3.7cm) IVSs0.8 cmLVOT diam2.3 (1.8-2.4cm) LVDs4.5 (2.5-4.0cm) PWs1.3 cm Aortic Valve AoV VTI0.3 mAo Mean GR4.0 mmHgLVOT VTI0.12 m FABIANO (VMAX)1.9 cm2AVA (VTI) 1.9 cm2 Mitral Valve MV E Vmax60.6 cm/sDECEL Vdgm387 ms MV A Vmax24.3 cm/sP 1/2 T65 ms E/A ratio2.5MVA (PHT)3.4 cm2 TDI E/E' Medial9.6E/E' [id number] Medial E' Peak V6.30 cm/sLateral E' Peak V5.00 cm/s Pulmonary Valve PV Vmax0.7 m/s PV Peak GR2.1 mmHg Left Ventricle The left ventricle is normal size. There is global hypokinesis of the left ventricle. Mild concentric left ventricular hypertrophy. Left ventricle systolic function is mildly depressed, 45 to 50%. Indet erminate diastolic dysfunction. Right Ventricle The right ventricle is normal size. The right ventricular systolic function is normal. Atria The left atrium is mildly dilated. The right atrium is moderately dilated. Aortic Valve Aortic valve is trileaflet. The leaflets are mildly thickened and calcified. Trace aortic regurgitati on. There is no aortic valvular stenosis. Mitral Valve The mitral valve is normal in structure. The leaflets are mildly thickened and calcified. Trace kyle l regurgitation. There is no mitral valve stenosis. Tricuspid Valve The tricuspid valve is normal in structure. Trace tricuspid regurgitation. RVSP is normal Pulmonic Valve Pulmonic valve is not well visualized. Great Vessels The aortic root is normal in size. IVC is not visualized. Pericardium There is no pericardial effusion. Other Information Quality : Limited/Follow-up Conclusion The left atrium is mildly dilated. The right atrium is moderately dilated. Mild concentric left ventricular hypertrophy. There is global hypokinesis of the left ventricle. Left ventricle systolic function is mildly depressed, 45 to 50%. Indeterminate diastolic dysfunction. Trace aortic regurgitation. Trace mitral regurgitation. Trace tricuspid regurgitation. RVSP is normal There is no pericardial effusion.
[2024-09-14 23:45] VITALS: BP 149/81; PULSE 76; RESP 19; TEMP 98
[2024-09-15 03:45] VITALS: BP 145/70; PULSE 67; RESP 19; TEMP 98.2
[2024-09-15 04:53] LABS: BASOPHILS # (AUTO) 0.04 K/uL (0.00-0.20); BASOPHILS % (AUTO) 0.7 % (0.0-5.0); EOSINOPHILS # (AUTO) 0.13 K/uL (0.00-0.70); EOSINOPHILS % (AUTO) 2.4 % (0.0-8.0); IMMATURE GRANULOCYTE ABSOLUTE 0.02 K/uL (0-1); LYMPHOCYTES % (AUTO) 37.6 % (21.0-51.0); MEAN CORPUSCULAR HEMOGLOBIN 31.5 pg (27.0-33.0); MEAN CORPUSCULAR HGB CONC 34.6 g/dL (32.0-36.0); MEAN CORPUSCULAR VOLUME 91.1 fL (79-99); MONOCYTES # (AUTO) 0.5 K/uL (0.1-1.0); MONOCYTES % (AUTO) 9.4 % (3.0-13.0); NEUTROPHILS # (AUTO) 2.6 K/uL (1.8-7.7); NEUTROPHILS % (AUTO) 49.5 % (40.0-77.0); PLATELET COUNT (AUTO) 224 K/uL (130-400); RED BLOOD CELL COUNT(AUTO) 4.28 MIL/uL (4.50-6.20); RED CELL DISTRIBUTION WIDTH 12.2 % (11.0-15.5); WHITE BLOOD COUNT (AUTO) 5.3 K/uL (4.8-10.8)
[2024-09-15 05:22] LABS: CREATININE 1.3 mg/dL (0.5-1.3); POTASSIUM 3.5 mmol/L (3.5-5.1)
[2024-09-15] MEDS: PoTASSium chloRIDE 20MEQ ER 20 MEQ ERTAB PO PRN (06:05)
--- NOTE | 2024-09-15 06:49 | PN ---
[facility] Cardiology Progress Note CARDIOLOGY PROGRESS NOTE SEPTEMBER 15, 2024 Problems: 1. Hypertensive emergency 2. Mildly elevated troponin with a flat pattern consistent with type 2 HI in the setting of hypertensive crisis 3. Dyslipidemia 4. Peripheral arterial disease 5. CAD status post aortocoronary bypass graft surgery with a DONOHUE graft to the LAD saphenous graft to the diagonal artery saphenous graft to the PDA 2004 with placement of overlapping drug-eluting stents in the proximal circumflex artery June 2013 with all three grafts patent at that time 6. Paroxysmal atrial fibrillation declining anticoagulation 7. Multiple medication intolerances and noncompliance with medications Blood pressure is down to 145/70. He was over 200 systolic on admission. Heart rate is in the 60s he is afebrile. White count 5.3 hemoglobin 13.5 platelet count [id number]. Potassium 3.5 BUN 17 creatinine 1.3 estimated GFR of 54. Troponins were 94, 79, 88, 92 and 90. Electrocardiogram showed sinus rhythm right bundle branch block left anterior fascicular block and PVCs. No acute ST changes were noted. His 2D echocardiogram shows ejection fraction of 45-50%. There was trace aortic regurgitation trace mitral regurgitation trace tricuspid regurgitation and no pericardial effusion. CT scan of the head showed small- vessel ischemic changes. Continues on aspirin carvedilol Lovenox for DVT prophylaxis famotidine potassium protocol. The patient had previously been on amlodipine at home but it was apparent he was noncompliant with the medication as he was not taking when he came into the hospital. Need to be compliant with his medications has been reinforced. Blood pressure is improving and we will continue with his current regimen. Can follow up me after discharge. I would suggest adding clopidogrel 75 mg daily for one month. SARAH BARRETT MD Sep 15, 2024 06:49
[2024-09-15 09:00] VITALS: O2SAT 99
[2024-09-15 09:13] VITALS: BP 140/64; PULSE 49; RESP 18; TEMP 97.9
[2024-09-15] MEDS: cloPIDOgrel 75MG TAB PO SCH (09:19)
[2024-09-15 09:20] VITALS: BP 140/60
[2024-09-15] MEDS ORDERED: CARV3.1262 PO (10:17)
[2024-09-15] MEDS ORDERED: CLOP-31 PO (10:17)
--- NOTE | 2024-09-15 10:18 | DS ---
Discharge Summary Hospital Course Summary: This is an 84-year-old male with past medical history of Hypertension, coronary artery disease with cardiac stent times two and CABG x3 who presents to the ED complaints of elevated blood pressure with a systolic BP at home above 200mmHg and feeling off balance .Upon further evaluation patient states he woke up not feeling well today .Patient states he usually walk 1 mile everyday and do some exercises like weight lifting every other day,however today he feels like a sharp pain around his left side of chest and lasted only for 2 seconds around the afternoon and he usually gets it every 10 days ever since he had a stent placed but he also notice he has having shortness of breath for the past 4 days that has been getting worse .since his BP is also high he decided to come to the ED for evaluation.Patient states his edger feeder is and the one who did his stents is . In the ER awake,alert and oriented.Patient denies headache,fever,chills,palpitation,nausea,vomiting , edema and abdominal pain. Vital signs temperature 97.9, heart rate 72, respiration 18, blood pressure 181/88, saturation 98% on room air. Labs: CBC unremarkable. BNP 220, chemistries normal. 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 Chest x- ray result revealed cardiomegaly clear lungs. CT head without contrast result revealed chronic small-vessel ischemic changes. His troponins have been trending downward from 94, 79, 88, 92, 90. Pending 2D echo results. Cardiology has been consulted, recommended to start on carvedilol 3.125mg and clopidogrel 75mg. His 2D echo shows LVEF 45-50%, mildly dilated left atrium, moderately dilated right atrium and global hypokinesis of the left ventricle. He currently denies chest pain or shortness of breath or dizziness or palpitations or diaphoresis. Patient has been cleared by Cardiology, we will discharge him to follow up PCP and Dr. 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 The heart is enlarged. Bony and soft tissue structures of the chest wall are unremarkable. IMPRESSION: Cardiomegaly. Clear lungs. DICTATED BY: JONN SPENCER MD DATE: 09/13/241953 ELECTRONICALLY SIGNED BY: JONN SPENCER MD DATE: 09/13/241956 PATIENT: FILIPE REHMAN MR#: [id number] : 1940 SEX: M AGE: 84 LOCATION: [facility] ORDER 58 STATUS: REG ER REPORT#: [id number] SERVICE 56 REASON: hypertensive, dizziness, ORDERING PHYSICIAN: GET COLVIN PROCEDURE: HEAD WO - CT HEAD/BRAIN W/O CONTRAST Exam Type: CT HEAD/BRAIN W/O CONTRAST Clinical Information: hypertensive, dizziness, Comparison: None CT Dose Index (CTDI): 57.33 mGy Dose Length Product (DLP): 956.79 total mGy-cm Findings: There is low attenuation throughout the periventricular white matter locations, consistent with chronic small vessel ischemic changes. No acute intra- or extra-axial fluid collections are seen. There is no evidence of acute or chronic hemorrhage. There is no mass effect or shift of midline structures. There are no areas to suggest acute infarct. The skull windows show no significant abnormalities. IMPRESSION: 1. CHRONIC SMALL VESSEL ISCHEMIC CHANGES. DICTATED BY: JONN SPENCER MD DATE: 09/13/241941 ELECTRONICALLY SIGNED BY: JONN SPENCER MD DATE: 09/13/241949 PATIENT: FILIPE REHMAN MR#: [id number] : 1940 SEX: M AGE: 84 LOCATION: [facility] ORDER 51 STATUS: ADM IN REPORT#: [id number] SERVICE 42 REASON: sob ORDERING PHYSICIAN: LEILA ANGELES PROCEDURE: ECHO FU LD - ECHO 2-D F/U-LTD APPROVED REPORT EXAM: Limited two-dimensional and M-mode echocardiogram with Doppler and color Doppler. INDICATION ICD: R06.02 Shortness of breath 2D Dimensions RVDd 3.9 cm LVEF(%) 31.6 (>50%) LA ESV INDEX (4CH) 31.10 mL/m2 IVSd 1.1 (0.7-1.1cm) FS(%) 15 % LVDd 5.3 (3.8-5.6cm) LA (2D) 4.0 (1.6-4.0cm) PWd 1.3 (0.7-1.1cm) Ao Root(2D) 3.8 (2.0-3.7cm) IVSs 0.8 cm LVOT diam 2.3 (1.8-2.4cm) LVDs 4.5 (2.5-4.0cm) PWs 1.3 cm Aortic Valve AoV VTI 0.3 m Ao Mean GR 4.0 mmHg LVOT VTI 0.12 m FABIANO (VMAX) 1.9 cm2 FABIANO (VTI) 1.9 cm2 Mitral Valve MV E Vmax 60.6 cm/s DECEL Time 141 ms MV A Vmax 24.3 cm/s P 1/2 T 65 ms E/A ratio 2.5 MVA (PHT) 3.4 cm2 TDI E/E' Medial 9.6 E/E' Lateral 12.1 Medial E' Peak V 6.30 cm/s Lateral E' Peak V 5.00 cm/s Pulmonary Valve PV Vmax 0.7 m/s PV Peak GR 2.1 mmHg Left Ventricle The left ventricle is normal size. There is global hypokinesis of the left v entricle. Mild concentric left ventricular hypertrophy. Left ventricle systolic function is mildly depressed, 45 to 50%. Indeterminate diastolic dysfunction. Right Ventricle The right ventricle is normal size. The right ventricular systolic function is normal. Atria The left atrium is mildly dilated. The right atrium is moderately dilated. Aortic Valve Aortic valve is trileaflet. The leaflets are mildly thickened and calcified. Trace aortic regurgitation. There is no aortic valvular stenosis. Mitral Valve The mitral valve is normal in structure. The leaflets are mildly thickened and calcified. Trace mitral regurgitation. There is no mitral valve stenosis. Tricuspid Valve The tricuspid valve is normal in structure. Trace tricuspid regurgitation. RVSP is normal Pulmonic Valve Pulmonic valve is not well visualized. Great Vessels The aortic root is normal in size. IVC is not visualized. Pericardium There is no pericardial effusion. Other Information Quality : Limited/Follow-up Conclusion The left atrium is mildly dilated. The right atrium is moderately dilated. Mild concentric left ventricular hypertrophy. There is global hypokinesis of the left ventricle. Left ventricle systolic function is mildly depressed, 45 to 50%. Indeterminate diastolic dysfunction. Trace aortic regurgitation. Trace mitral regurgitation. Trace tricuspid regurgitation. RVSP is normal There is no pericardial effusion. 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 Mesa FOLLOW UP APPOINTMENT(S) : f/u with PCP in one 2-3 days, f/u with Dr. Mesa in 2 weeks PROCEDURES: none IMAGING (S) : report attached to summary MICROBIOLOGY : none ACTIVITY : ad kirti HOME MEDICATIONS : Continued Home Medications: Active Scripts Clopidogrel Bisulfate (Plavix) 75 Mg Tablet, 75 MG PO DAILY, #30 TAB Prov:NISHA SHAH MD 09/15/24 Carvedilol (Coreg) 3.125 Mg Tablet, 3.125 MG PO BID, #60 TAB Prov:NISHA SHAH MD 09/15/24 Reported Medications Aspirin (ASPIRIN 81MG CHEW TAB) 81 Mg Tab.chew, 81 MG PO DAILY, TAB.CHEW 07/31/24 Montelukast Sodium (Montelukast Sodium) 10 Mg Tablet, 10 MG PO DAILY, TAB 07/31/24 Lactobacillus Acidophilus (Acidophilus Lactobacilli) 500 Million Cell Capsule, 1 EACH PO DAILY, CAP 07/31/24 Fexofenadine HCl (Fexofenadine HCl) 180 Mg Tablet, 180 MG PO DAILY, TAB 07/31/24 Lubiprostone (Amitiza) 24 Mcg Capsule, 24 MCG PO BID, CAP 07/31/24 New Medications: Carvedilol (Coreg) 3.125 Mg Tablet 3.125 MG PO BID, #60 TAB Clopidogrel Bisulfate (Plavix) 75 Mg Tablet 75 MG PO DAILY, #30 TAB Continued Medications: Aspirin (Aspirin 81MG Chew Tab) 81 Mg Tab.chew 81 MG PO DAILY, TAB.CHEW Fexofenadine HCl (Fexofenadine HCl) 180 Mg Tablet 180 MG PO DAILY, TAB Lactobacillus Acidophilus (Acidophilus Lactobacilli) 500 Million Cell Capsule 1 EACH PO DAILY, CAP Lubiprostone (Amitiza) 24 Mcg Capsule 24 MCG PO BID, CAP Montelukast Sodium (Montelukast Sodium) 10 Mg Tablet 10 MG PO DAILY, TAB Time spent arranging discharge: 1-30 minutes ATTESTATION BY PHYSICIAN I have seen and examined the patient. I reviewed the documentation, medical decision making, and treatment plan as noted by the resident provider above. I agree with the findings and plan of care. Bebo Mcknight MD, NIHITHA MD Sep 15, 2024 10:18
--- NOTE | 2024-09-15 11:11 | NUR ---
DISCHARGE PIV DC'D. REVIEWED DISCHARGE EDUCATION, NEW PRESCRIPTIONS, AND FOLLOW UP APPOINTMENTS. PATIENT VERBALIZED UNDERSTANDING. ALL QUESTIONS ANSWERED AT THE BEDSIDE. PATIENT TRANSPORTED VIA WHEELCHAIR OUT OF THE HOSPITAL.
== END 2024-09-15 11:15 | disposition home or self-care (01) | DRG 281 ==
LOC: EDH 18:43 → EDHIP 22:43 → 3BH 09-14 18:28
PROVIDERS: ADMIT Internal Medicine; ATTEND Internal Medicine
DX: I16.1 Hypertensive emergency (principal); I45.2 Bifascicular block; I21.A1 Myocardial infarction type 2; I73.9 Peripheral vascular disease, unspecified; I48.0 Paroxysmal atrial fibrillation; E78.00 Pure hypercholesterolemia, unspecified; I25.10 Atherosclerotic heart disease of native coronary artery without angina pectoris; I10 Essential (primary) hypertension; Z82.49 Family history of ischemic heart disease and other diseases of the circulatory system; Z91.148 Patient's other noncompliance with medication regimen for other reason; Z95.1 Presence of aortocoronary bypass graft; Z95.5 Presence of coronary angioplasty implant and graft
CPT/HCPCS: 36415; 70450; 71045; 80048; 80053; 80061; 82550; 83036; 83735; 83880; 84439; 84443; 84484; 85025; 85610; 85730; 93005; 93308; G0378; J0360; J1650

== ENCOUNTER 2025-01-28 01:32 | Emergency (ER) | payer OTHER, MEDICARE ==
[~2025-01-28] VITALS: Ht 182.9 cm; Wt 86.6 kg
[~2025-01-28 01:32] MED LIST changes: +CARV3.1262 PO; +CLOP-31 PO; -FEXO-263 PO; +FEXO-402 PO
[2025-01-28] MEDS: LACTATED RINGERS 1000ML IV STA (02:10)
[2025-01-28] MEDS: MAGNESIUM CITRATE 296 ML SOLUTION PO ONE (02:10)
[2025-01-28 02:19] LABS: IMMATURE GRANULOCYTE ABSOLUTE 0.04 K/uL (0-1); NUCLEATED RED BLOOD CELLS 0.0 % (0.0-0.19); PLATELET COUNT (AUTO) 248 K/uL (130-400); RED BLOOD CELL COUNT(AUTO) 4.40 MIL/uL (4.50-6.20); RED CELL DISTRIBUTION WIDTH 12.8 % (11.0-15.5); WHITE BLOOD COUNT (AUTO) 8.6 K/uL (4.8-10.8)
[2025-01-28 02:27] LABS: CREATININE 1.2 mg/dL (0.5-1.3); GLOMERULAR FILTR. RATE CALC 59.0 mL/min (>90); GLUCOSE,RANDOM 105.0 mg/dL (70-105); SODIUM SERUM 136.0 mmol/L (136-145); UREA NITROGEN, BLOOD 14.0 mg/dL (7-18)
[2025-01-28] MEDS ORDERED: MAGN296S73 PO (03:24)
[2025-01-28] MEDS ORDERED: POLY17PO52 PO (03:24)
--- NOTE | 2025-01-28 03:28 | ERN ---
General Chief Complaint: Constipation Stated Complaint: C/O ABD PAIN W/CONSTIPATION X 4 DAYS Time Seen by MD: 01:39 Source: patient History of Present Illness Initial Comments 84-year-old male who has had no bowel movements in four days and comes in be cause it starting to cause increasing pain in his abdomen. He said he spent at least 4 hours on the toilet today trying to have a bowel movement with no success. These feelings are also associated with a sense of urgency for urination. He does not have obstipation. Timing/Duration: 1 week Allergies: Coded Allergies: diltiazem (Verified Adverse Reaction, Unknown, DIZZINESS, 03/04/23) Home Meds Active Scripts Clopidogrel Bisulfate (Plavix) 75 Mg Tablet, 75 MG PO DAILY, #30 TAB Prov:NISHA SHAH MD 09/15/24 Carvedilol (Coreg) 3.125 Mg Tablet, 3.125 MG PO BID, #60 TAB Prov:NISHA SHAH MD 09/15/24 Reported Medications Aspirin (ASPIRIN 81MG CHEW TAB) 81 Mg Tab.chew, 81 MG PO DAILY, TAB.CHEW 07/31/24 Montelukast Sodium (Montelukast Sodium) 10 Mg Tablet, 10 MG PO DAILY, TAB 07/31/24 Lactobacillus Acidophilus (Acidophilus Lactobacilli) 500 Million Cell Capsule, 1 EACH PO DAILY, CAP 07/31/24 Fexofenadine HCl (Fexofenadine HCl) 180 Mg Tablet, 180 MG PO DAILY, TAB 07/31/24 Lubiprostone (Amitiza) 24 Mcg Capsule, 24 MCG PO BID, CAP 07/31/24 Past Medical History Past Medical History: Hypertension Past Surgical History: Other Surgical History Other: CARDIAC STENTS Social History Social History: Negative, Lives with family Constitutional: (-) chills, (-) diaphoresis, (-) fever, (-) malaise, (-) weakness, (-) other documentation EENTM: (-) eye pain, (-) blurred vision, (-) tearing, (-) double vision, (-) ear pain, (-) ear discharge, (-) nose pain, (-) nose congestion, (-) throat pain, (-) Throat swelling, (-) mouth pain, (-) tooth pain, (-) mouth swelling, (-) other documentation Respiratory: (-) cough, (-) orthopnea, (-) short of breath, (-) stridor, (-) wheezing, (-) other documentation Cardiovascular: (-) chest pain, (-) edema, (-) palpitations, (-) syncope, (-) dyspnea on exertion, (-) other documentation Gastrointestinal/Abdominal: (+) constipation Physical Exam General Appearance: (+) mild distress Orientation: (+) oriented x 3 Head/Face Trauma: No Eye: bilateral eye normal inspection, bilateral eye PERRL, bilateral eye EOMI Ear, Nose, Throat: (+) hearing grossly normal, (+) normal ENT inspection, (+) moist mucous membraine Neck: (+) normal inspection, (+) supple, (+) full range of motion Respiratory: (+) chest non-tender, (+) lungs clear Heart: (+) regular, (+) no gallop Vascular: (+) no edema Gastrointestinal: (+) soft, (+) non-tender, (+) bowel sound present Results Laboratory and Microbiology Lab and Micro Result Laboratory Tests Test 01/28/25 01:55 White Blood Count 8.6 K/uL (4.8-10.8) Red Blood Count 4.40 MIL/uL (4.50-6.20) L Hemoglobin 14.1 g/dL (14.0-18.0) Hematocrit 41.2 % (42-54) L Mean Corpuscular Volume 93.6 fL (79-99) Mean Corpuscular Hemoglobin 32.0 pg (27.0-33.0) Mean Corpuscular Hemoglobin Concent 34.2 g/dL (32.0-36.0) Red Cell Distribution Width 12.8 % (11.0-15.5) Platelet Count 248 K/uL (130-400) Mean Platelet Volume 10.3 fL (7.5-10.5) Immature Granulocyte % (Auto) 0.5 % (0-1) Neutrophils (%) (Auto) 60.8 % (40.0-77.0) Lymphocytes (%) (Auto) 28.5 % (21.0-51.0) Monocytes (%) (Auto) 7.6 % (3.0-13.0) Eosinophils (%) (Auto) 2.0 % (0.0-8.0) Basophils (%) (Auto) 0.6 % (0.0-5.0) Neutrophils # (Auto) 5.2 K/uL (1.8-7.7) Lymphocytes # (Auto) 2.4 K/uL (1.0-4.8) Monocytes # (Auto) 0.7 K/uL (0.1-1.0) Eosinophils # (Auto) 0.17 K/uL (0.00-0.70) Basophils # (Auto) 0.05 K/uL (0.00-0.20) Absolute Immature Granulocyte (auto 0.04 K/uL (0-1) Nucleated Red Blood Cells 0.0 % (0.0-0.19) Sodium Level 136 mmol/L (136-145) Potassium Level 3.5 mmol/L (3.5-5.1) Chloride Level 100 mmol/L (101-111) L Carbon Dioxide Level 28 mmol/L (21-32) Blood Urea Nitrogen 14 mg/dL (7-18) Creatinine 1.2 mg/dL (0.5-1.3) Glomerular Filtration Rate Calc 59 mL/min (>90) Random Glucose 105 mg/dL (70-105) Total Calcium 9.2 mg/dL (8.5-10.1) MDM MDM: Differential diagnosis: The cause of patient's constipation could be due to diet, dehydration, medication side effects, dysmotility. Rationale: Tests considered and ordered secondary to shared decision making include: Previous outside records reviewed: Old ER visits. Risk of complication and/or morbidity or mortality of patient management: None Medications-Per medication reconciliation Need for hospitalization: Patient does meet criteria for hospitalization. Need for emergency major/minor surgery: No There are no social concerns with this patient. Prescription drug management Prescriptions will include symptomatic care Patient's prior external medical records from other ER visits were reviewed by me as indicated. Prior testing and results from previous visits were reviewed. Prior tests were taken into account with medical decision making and resource utilization, independent historian/historians were used to obtain complete medical history. I independently interpreted the test that were performed, results were reviewed by me and considered findings on radiology if ordered. I will start with a simple KUB and then also provide the patient with magnesium citrate and a Fleet's enema. Approximately half an hour after writing these orders the patient went to the bathroom and had a very large bowel movement. He was also incontinent of urine. The urinary incontinence could be due to pressure on the bladder from his stool. KUB showed a moderate stool burden with some stool in the rectal vault. In either case the patient said he had a very large bowel movement and would like to go home. ED Course Orders Procedure Category Date Status Time Abd 1vw RAD 01/28/25 Taken 01:48 Magnesium Citrate PHA 01/28/25 Complete (Magnesium Citrate) 02:00 Fleet Order CPOE 01/28/25 Transmitted 01:48 Lactated Ringers PHA 01/28/25 Complete 1000ml (Lactated 01:58 Basic Metabolic Panel LAB 01/28/25 Complete 01:58 Cbc With Differential LAB 01/28/25 Complete 01:58 Current Medications Medications (Trade) Dose Ordered Sig/Burak Route PRN Reason Start Time Stop Time Status Last Admin Dose Admin Lactated Ringer's (Lactated Ringers 1000ml) 1,000 ml BOLUS STAT IV 01/28/25 01:58 01/28/25 02:00 DC 01/28/25 02:10 Magnesium Citrate (Magnesium Citrate) 296 ml ONCE ONCE PO 01/28/25 02:00 01/28/25 02:01 DC 01/28/25 02:10 Vital Signs Date Time Temp Pulse Resp B/P (MAP) Pulse Ox O2 Delivery O2 Flow Rate FiO2 01/28/25 02:06 98.8 85 18 139/85 99 Room Air* 0 21 01/28/25 01:35 96.6 73 20 152/82 97 Room Air DX & DISP Disposition: Discharge Departure Impression: Primary Impression: Constipation Condition: Stable Scripts Polyethylene Glycol 3350 (Polyethylene Glycol 3350) 17 Gram Powd.pack 1 PACKET PO DAILY for constipation for 10 Days, #10 PACKET 0 Refills Prov: BEN RCIHEY MD 01/28/25 Magnesium Citrate (Magnesium Citrate) 296 Ml Solution 296 ML PO ONCE for 1 Day, #296 ML 0 Refills Prov: BEN RICHEY MD 01/28/25 Additional Instructions: You have constipation. The cause of this could be many factors I would consult your [facility] to see if there was an underlying metabolic cause. In the meantime a package of GoLYTELY each night may help prevent this from happening in the future. I have sent a prescription for it as well as a bottle of magnesium citrate to the [facility] for you to use the bottle of magnesium citrate we will help to evacuate almost all of your stool burden at one time. The individual packets of GoLYTELY are good for one packet each night to keep you regular with bowel movements and prevent constipation. Referrals: LAUREN ANDERSON MD (PCP) BEN RICHEY MD Jan 28, 2025 03:28
--- NOTE | 2025-01-28 03:32 | HMCIMG ---
EXAM: CR Abdomen, 2 views. CLINICAL HISTORY: Pain. COMPARISON: None provided. FINDINGS: Nonobstructed nonspecific bowel gas pattern. No free air is evident. No abnormal calcification. No aggressive appearing osseous lesion. IMPRESSION: No acute process. Nonspecific bowel gas pattern. /[place]
[2025-01-28 03:34] VITALS: BP 121/66; PULSE 88; RESP 18; TEMP 98.8; O2SAT 97
== END 2025-01-28 03:34 | disposition home or self-care (01) ==
LOC: EDH 01:32
DX: K59.00 Constipation, unspecified (principal); I10 Essential (primary) hypertension; Z79.02 Long term (current) use of antithrombotics/antiplatelets; Z79.82 Long term (current) use of aspirin; Z79.899 Other long term (current) drug therapy; Z95.5 Presence of coronary angioplasty implant and graft
CPT/HCPCS: 36415; 74018; 80048; 85025; 99283; 99284